=== PATIENT | male | born 1995 | race African-American/Black ===

== ENCOUNTER → 2023-10-27 | Emergency (ER) | payer BC ==
--- NOTE | 2023-10-27 19:44 | ER ---
Nurse's Notes [facility] Name: Man Davis Age: 28 yrs Sex: Male : 1995 Arrival Date: 10/27/2023 Time: 19:14 Bed IW6 Private MD: Diagnosis: Hidradenitis suppurativa Presentation: 10/27 19:31 Chief complaint: Patient states: Pt has extensive history of multiple cysts on his tl4 buttocks that have been drained. Pt states he feels like they are getting worse and more painful. Coronavirus screen: At this time, the client does not indicate any symptoms associated with coronavirus-19. Ebola Screen: No symptoms or risks identified at this time. Initial Sepsis Screen: Does the patient meet any 2 criteria? No. Patient's initial sepsis screen is negative. Does the patient have a suspected source of infection? No. Patient's initial sepsis screen is negative. Risk Assessment: Do you want to hurt yourself or someone else? Patient reports no desire to harm self or others. Onset of symptoms is unknown. 19:31 Method Of Arrival: Ambulatory tl4 19:31 Acuity: SUMEET 3 tl4 Triage Assessment: 19:34 General: Appears uncomfortable, Behavior is calm, cooperative. Pain: Complains of pain tl4 in buttocks. EENT: No deficits noted. No signs and/or symptoms were reported regarding the EENT system. Neuro: No deficits noted. Cardiovascular: No deficits noted. Respiratory: No deficits noted. GI: No deficits noted. No signs and/or symptoms were reported involving the gastrointestinal system. : No deficits noted. No signs and/or symptoms were reported regarding the genitourinary system. Derm: Reports pain cysts. Historical: - Allergies: 19:29 No Known Allergies; tl4 - Home Meds: 19:29 None [Active]; tl4 - PMHx: 19:29 Anemia; hidradenitis suppurativa; tl4 - Immunization history:: Adult Immunizations unknown. - Social history:: Smoking status: Patient reports the use of cigarette tobacco products, cigars. Screenin:46 [facility] ED Fall Risk Assessment (Adult) History of falling in the last 3 months, tl4 including since admission No falls in past 3 months (0 pts) Confusion or Disorientation No (0 pts) Intoxicated or Sedated No (0 pts) Impaired Gait No (0 pts) Mobility Assist Device Used No (0 pt) Altered Elimination No (0 pt) Score/Fall Risk Level 0 - 2 = Low Risk Oriented to surroundings, Maintained a safe environment, Educated pt \T\ family on fall prevention, incl call for assistance when getting out of bed, Assessed \T\ reinforced patient's understanding of fall precautions, Provided non-skid footwear, Hourly rounding (assess needs \T\ fall precautionary measures) done, Used ambulatory aids as needed (educated on \T\ assisted with), Used gait belt as appropriate. Abuse screen: Denies threats or abuse. Denies injuries from another. Nutritional screening: No deficits noted. Tuberculosis screening: No symptoms or risk factors identified. Assessment: 19:46 Reassessment: No changes from previously documented assessment. Patient and/or family tl4 updated on plan of care and expected duration. Pain level reassessed. Patient is alert, oriented x 3, equal unlabored respirations, skin warm/dry/pink. Vital Signs: 19:31 BP 136 / 87; Pulse 98; Resp 16; Temp 98.8(O); Pulse Ox 99% on R/A; Weight 127.01 kg; tl4 Height 6 ft. 3 in. ; Pain 8/10; 19:31 Body Mass Index 35.00 (127.01 kg, 190.5 cm) tl4 19:31 Pain Scale: Adult tl4 ED Course: 19:28 Patient arrived in ED. tl4 19:31 Arm band placed on right wrist. tl4 19:34 Triage completed. tl4 19:42 Anna Maria FNP-C [facility]. kb 19:42 Ajith Pablo MD is Attending Physician. kb 19:46 Patient has correct armband on for positive identification. Provided Education on: ed tl4 process. 19:46 No provider procedures requiring assistance completed. Patient did not have IV access tl4 during this emergency room visit. Administered Medications: No medications were administered Medication: 19:46 VIS not applicable for this client. tl4 Outcome: 19:43 Discharge ordered by . kb 19:47 Discharged to home ambulatory, tl4 19:47 Condition: stable 19:47 Discharge instructions given to patient, Instructed on discharge instructions, follow up and referral plans. medication usage, Demonstrated understanding of instructions, follow-up care, medications, Prescriptions given X 2, 19:52 Patient left the ED. tl4 Signatures: Anna Maria, CARLOS DINH-Abdulaziz Batista tl4
--- NOTE | 2023-10-27 19:44 | EDPHYS ---
Physician Documentation [facility] Name: Man Davis Age: 28 yrs Sex: Male : 1995 Arrival Date: 10/27/2023 Time: 19:14 Bed IW6 Private MD: ED Physician Ajith Pablo HPI: 10/27 21:47 This 28 yrs old Male presents to ER via Ambulatory with complaints of Abscess. kb 21:47 Patient is a 28-year-old male with a history of hidradenitis suppurativa who presents kb for multiple abscesses that have been draining for months. States he had a surgery in [place] where they opened and drained 17 abscesses on his buttocks. states some of those areas healed, but others have been draining since the surgery. States he had been on clindamycin for 90 days, but ran out last week. States he doesn't believe the clindamycin was helping. . Historical: - Allergies: 19:29 No Known Allergies; tl4 - Home Meds: 19:29 None [Active]; tl4 - PMHx: 19:29 Anemia; hidradenitis suppurativa; tl4 - Immunization history:: Adult Immunizations unknown. - Social history:: Smoking status: Patient reports the use of cigarette tobacco products, cigars. ROS: 21:46 Constitutional: Negative for fever, chills, and weight loss, kb 21:46 Skin: Positive for abscess, of the buttocks, 21:46 All other systems are negative, Exam: 21:47 Constitutional: This is a well developed, well nourished patient who is awake, alert, kb and in no acute distress. Head/Face: Normocephalic, atraumatic. ENT: Moist Mucous membranes Cardiovascular: Regular rate Respiratory: Respirations even and unlabored. No increased work of breathing. Talking in full sentences MS/ Extremity: Pulses equal, no cyanosis. Neurovascular intact. Full, normal range of motion. Neuro: Awake and alert, GCS 15, oriented to person, place, time, and situation. Moves all extremities. Normal gait. 21:47 Skin: multiple small abscesses to buttocks a inner upper thighs with drainage. Vital Signs: 19:31 BP 136 / 87; Pulse 98; Resp 16; Temp 98.8(O); Pulse Ox 99% on R/A; Weight 127.01 kg; tl4 Height 6 ft. 3 in. ; Pain 8/10; 19:31 Body Mass Index 35.00 (127.01 kg, 190.5 cm) tl4 19:31 Pain Scale: Adult tl4 MDM: 19:42 Patient medically screened. kb 21:46 Differential diagnosis: abscess, allergic reaction, cellulitis, insect bite. Data kb reviewed: vital signs, nurses notes. Counseling: I had a detailed discussion with the patient and/or guardian regarding the historical points, exam findings, and any diagnostic results supporting the discharge/admit diagnosis, the need for outpatient follow up, a curing oven attendant, a general surgeon, to return to the emergency department if symptoms worsen or persist or if there are any questions or concerns that arise at home. 21:50 ED course: Pt educated on need for follow up with dermatology. Pt states he has been kb told that before but he just moved here and needs a referral. Pt will follow up with PCP to get a referral. . Administered Medications: No medications were administered Disposition Summary: 10/27/23 19:43 Discharge Ordered Notes: Location: Home kb Condition: Stable kb Diagnosis - Hidradenitis suppurativa kb Followup: kb - With: Emergency Department - When: As needed - Reason: Worsening of condition Followup: kb - With: Private Physician - When: 2 - 3 days - Reason: Recheck today's complaints, Continuance of care, Re-evaluation by your physician Discharge Instructions: - Discharge Summary Sheet kb - Hidradenitis Suppurativa kb Forms: - Work release form kb - Medication Reconciliation Form kb - Thank You Letter kb - Antibiotic Education kb - Prescription Opioid Use kb - Patient Portal Instructions kb - Leadership Thank You Letter kb Prescriptions: - Ibuprofen 800 mg Oral Tablet - take 1 tablet ORAL route every 8 hours As needed take with food; 30 tablet; kb Refills: 0, Product Selection Permitted - Bactrim DS 800-160 mg Oral tablet - take 1 tablet ORAL route every 12 hours for 14 days; 28 tablet; Refills: 0, kb Product Selection Permitted Signatures: Anna Maria FNP-C FNP-Hadrik LogdaAbdulaziz subramanian tl4 Corrections: (The following items were deleted from the chart) 19:43 19:43 Cutaneous abscess of buttock kb kb
[2023-10-28 06:18] VITALS: BP 136/87; TEMP 98.8; O2SAT 99
== END ==
LOC: ER 19:14
DX: L73.2 Hidradenitis suppurativa (principal)

== ENCOUNTER 2023-10-28 10:55 | Observation (INO) | payer BC ==
[2023-10-28] MEDS ORDERED: ONDANSETRON 4 MG/2 ML VIAL ONE ×2 (11:10→16:01)
[2023-10-28] MEDS ORDERED: MORPHINE 4 MG/ML SYR ONE ×2 (11:11→13:16)
[2023-10-28] MEDS ORDERED: AMPICILLIN/SULBACTAM 3GM/VIAL ONE (11:11)
[2023-10-28] MEDS ORDERED: NA CHLORIDE 0.9% 100 ML ONE (11:11)
[2023-10-28] MEDS ORDERED: NA CHLORIDE 0.9% 1,000 ML ONE (11:12)
--- NOTE | 2023-10-28 11:20 | ER ---
Nurse's Notes [facility] Name: Man Davis Age: 28 yrs Sex: Male : 1995 Arrival Date: 10/28/2023 Time: 10:55 Bed 16 Private MD: Diagnosis: Cutaneous abscess of buttock;Hidradenitis suppurativa;Elevated white blood cell count;Hyperglycemia, unspecified;Type 2 diabetes mellitus with hyperglycemia;Obesity, unspecified Presentation: 10/28 11:00 Chief complaint: TOLD TO RETURN BY MD FOR RE-EVAL OF LEFT BUTTOCK ABSCESS. NOW TBA FOR bp SURGICAL DEBRIDEMENT AND IV ABX. Coronavirus screen: At this time, the client does not indicate any symptoms associated with coronavirus-19. Ebola Screen: No symptoms or risks identified at this time. Initial Sepsis Screen: Does the patient meet any 2 criteria? No. Patient's initial sepsis screen is negative. Does the patient have a suspected source of infection? No. Patient's initial sepsis screen is negative. Risk Assessment: Do you want to hurt yourself or someone else? Patient reports no desire to harm self or others. Onset of symptoms is unknown. 11:00 Method Of Arrival: Ambulatory bp 11:00 Acuity: SUMEET 3 bp Triage Assessment: 11:02 General: Appears in no apparent distress. uncomfortable, Behavior is calm, cooperative, bp appropriate for age. Pain: Complains of pain in buttocks. Historical: - Allergies: 11:02 No Known Allergies; bp - PMHx: 11:02 Hidradenitis Suppurativa; Anemia; bp - Immunization history:: Adult Immunizations up to date. - Social history:: Smoking status: unknown. - Family history:: not pertinent. Screenin:[address] [facility] ED Fall Risk Assessment (Adult) History of falling in the last 3 months, me1 including since admission No falls in past 3 months (0 pts) Confusion or Disorientation No (0 pts) Intoxicated or Sedated No (0 pts) Impaired Gait No (0 pts) Mobility Assist Device Used No (0 pt) Altered Elimination No (0 pt) Score/Fall Risk Level 0 - 2 = Low Risk Maintained a safe environment, Provided non-skid footwear, Hourly rounding (assess needs \T\ fall precautionary measures) done. Abuse screen: Denies threats or abuse. Nutritional screening: No deficits noted. Tuberculosis screening: No symptoms or risk factors identified. Assessment: 11:05 General: Appears in no apparent distress. uncomfortable, Behavior is calm, cooperative. rs5 Pain: Complains of pain in buttocks Pain does not radiate. Pain currently is 7 out of 10 on a pain scale. Quality of pain is described as aching, Pain began gradually, Is continuous, Aggravated by increased activity. Neuro: Level of Consciousness is awake, alert, obeys commands, Oriented to person, place, time, situation. 11:05 Cardiovascular: Rhythm is regular. Respiratory: Airway is patent Respiratory effort is rs5 even, unlabored, Respiratory pattern is regular, symmetrical. GI: Abdomen is round non-distended, Bowel sounds present X 4 quads. Abd is soft and non tender X 4 quads. GI:. : No signs and/or symptoms were reported regarding the genitourinary system. EENT: No signs and/or symptoms were reported regarding the EENT system. Derm: Skin dime abscess noted to left buttocks. Musculoskeletal: Range of motion: intact in all extremities. Vital Signs: 11:02 BP 141 / 79; Pulse 78; Resp 16; Temp 98; Pulse Ox 99% ; Weight 172 kg; Height 6 ft. 3 bp in. ; 12:00 BP 97 / 52; Pulse 74; Resp 16; Pulse Ox 100% on R/A; Pain 9/10; me1 13:00 BP 94 / 51; Pulse 74; Resp 18; Pulse Ox 99% on R/A; me1 11:02 Body Mass Index 47.40 (172.00 kg, 190.5 cm) bp 12:00 Pain Scale: Adult wv1 ED Course: 10:59 Patient arrived in ED. angelina 10:59 Ajith Pablo MD is Attending Physician. angelina 11:01 Triage completed. bp 11:02 Arm band placed on. bp 11:07 Hans Kat RN is Primary Nurse. rs5 11:09 Inserted saline lock: 20 gauge in right antecubital area, using aseptic technique. rs5 Blood collected. 11:16 Orlando Beal MD is Hospitalizing Provider. angelina 13:25 Hemoglobin A1c Sent. me1 13:25 Lipid Profile Sent. me1 14:13 Patient has correct armband on for positive identification. Placed in gown. Bed in low me1 position. Side rails up X2. Provided Education on: POC. Verbalized understanding. . 14:13 No provider procedures requiring assistance completed. me1 14:15 Patient admitted, IV remains in place. me1 Administered Medications: 11:10 Drug: NS 0.9% IV 1000 ml IV at 1 bolus Per protocol; 1000 mL bolus Route: IV; Rate: 1 rs5 bolus; Site: right antecubital; 13:29 Follow up: IV Status: Completed infusion; IV Intake: 1000ml me1 11:10 Drug: morphine IVP or IV 4 mg IVP once over 4 mins Route: IVP; Infused Over: 4 mins; rs5 Site: right antecubital; 12:14 Follow up: Response: No adverse reaction; Pain is decreased me1 11:10 Drug: Ondansetron IVP 4 mg IVP once; over 2 minutes Route: IVP; Site: right antecubital;rs5 12:13 Follow up: Response: No adverse reaction; Nausea is decreased me1 11:30 Drug: Ampicillin-Sulbactam Sodium IVPB 3 grams IVPB once over 30 mins; (mix in 100 mL rs5 NS) Route: IVPB; Infused Over: 30 mins; Site: right antecubital; 12:13 Follow up: Response: No adverse reaction; IV Status: Completed infusion me1 12:21 Drug: vancoMYCIN IVPB 1.5 grams IVPB at calculated rate once Route: IVPB; Rate: me1 calculated rate; Site: right antecubital; 14:14 Follow up: IV Status: Infusion continued upon admission me1 Medication: 14:14 VIS not applicable for this client. me1 Intake: 13:29 IV: 1000ml; Total: 1000ml. me1 Outcome: 11:19 Decision to Hospitalize by Provider. angelina 14:14 Admitted to Med/surg accompanied by tech, via stretcher, room 218, with chart, Report me1 called to JONATHAN Canseco 14:14 Condition: stable 14:14 Instructed on the need for admit, 14:33 Patient left the ED. ap3 Signatures: Ajith Pablo MD MD cha Peltier, Brian RN RN bp Prisca Marcus RN RN ap3 Hans Kat RN RN rs5 Sandra Mustafa RN RN me1
--- NOTE | 2023-10-28 11:20 | EDPHYS ---
Physician Documentation [facility] Name: Man Davis Age: 28 yrs Sex: Male : 1995 Arrival Date: 10/28/2023 Time: 10:55 Bed 16 Private MD: ED Physician Ajith Pablo HPI: 10/28 11:06 This 28 yrs old Black Male presents to ER via Ambulatory with complaints of hs angelina infected, repeat visit. 11:06 The patient presents with cellulitis of the buttocks, the patient presents with a angelina swollen area of the buttocks. Description: The affected area is moderate sized, draining, erythematous. Onset: The symptoms/episode began/occurred 5 day(s) ago. Possible cause(s): unknown. Associated signs and symptoms: Pertinent positives: drainage, erythema, swelling. Modifying factors: the symptoms are alleviated by remaining still, repositioning , the symptoms are aggravated by movement, pressure. Severity of symptoms: At their worst the symptoms were moderate, in the emergency department the symptoms are unchanged. The patient has experienced similar episodes in the past, multiple times. Historical: - Allergies: 11:02 No Known Allergies; bp - PMHx: 11:02 Hidradenitis Suppurativa; Anemia; bp - Immunization history:: Adult Immunizations up to date. - Social history:: Smoking status: unknown. - Family history:: not pertinent. ROS: 11:06 Constitutional: Negative for fever, chills, and weight loss, Eyes: Negative for injury, angelina pain, redness, and discharge, ENT: Negative for injury, pain, and discharge, Neck: Negative for injury, pain, and swelling, Cardiovascular: Negative for chest pain, palpitations, and edema, Respiratory: Negative for shortness of breath, cough, wheezing, and pleuritic chest pain, Abdomen/GI: Negative for abdominal pain, nausea, vomiting, diarrhea, and constipation, Back: Negative for injury and pain, : Negative for injury, bleeding, discharge, and swelling, Neuro: Negative for headache, weakness, numbness, tingling, and seizure, Psych: Negative for depression, anxiety, suicide ideation, homicidal ideation, and hallucinations, Allergy/Immunology: Negative for hives, rash, and allergies, Endocrine: Negative for neck swelling, polydipsia, polyuria, polyphagia, and marked weight changes, Hematologic/Lymphatic: Negative for swollen nodes, abnormal bleeding, and unusual bruising, 11:06 MS/extremity: Positive for erythema, pain, swelling, tenderness, 11:06 Skin: Positive for abscess, cellulitis, erythema, swelling, of the buttocks, Exam: 11:06 Constitutional: This is a well developed, well nourished patient who is awake, alert, angelina and in no acute distress. Head/Face: Normocephalic, atraumatic. Eyes: Pupils equal round and reactive to light, extra-ocular motions intact. Lids and lashes normal. Conjunctiva and sclera are non-icteric and not injected. Cornea within normal limits. Periorbital areas with no swelling, redness, or edema. ENT: Nares patent. No nasal discharge, no septal abnormalities noted. Tympanic membranes are normal and external auditory canals are clear. Oropharynx with no redness, swelling, or masses, exudates, or evidence of obstruction, uvula midline. Mucous membranes moist. Neck: Trachea midline, no thyromegaly or masses palpated, and no cervical lymphadenopathy. Supple, full range of motion without nuchal rigidity, or vertebral point tenderness. No Meningismus. Chest/axilla: Normal chest wall appearance and motion. Nontender with no deformity. No lesions are appreciated. Cardiovascular: Regular rate and rhythm with a normal S1 and S2. No gallops, murmurs, or rubs. Normal PMI, no JVD. No pulse deficits. Respiratory: Lungs have equal breath sounds bilaterally, clear to auscultation and percussion. No rales, rhonchi or wheezes noted. No increased work of breathing, no retractions or nasal flaring. Abdomen/GI: Soft, non-tender, with normal bowel sounds. No distension or tympany. No guarding or rebound. No evidence of tenderness throughout. Back: No spinal tenderness. No costovertebral tenderness. Full range of motion. Male : Normal genitalia with no discharge or lesions. Neuro: Awake and alert, GCS 15, oriented to person, place, time, and situation. Cranial nerves II-XII grossly intact. Motor strength 5/5 in all extremities. Sensory grossly intact. Cerebellar exam normal. Normal gait. Psych: Awake, alert, with orientation to person, place and time. Behavior, mood, and affect are within normal limits. 11:06 Skin: abscess, that is moderate sized, of the buttocks, cellulitis, that is moderate, induration, that is moderate is noted, Vital Signs: 11:02 BP 141 / 79; Pulse 78; Resp 16; Temp 98; Pulse Ox 99% ; Weight 172 kg; Height 6 ft. 3 bp in. ; 12:00 BP 97 / 52; Pulse 74; Resp 16; Pulse Ox 100% on R/A; Pain 9/10; me1 13:00 BP 94 / 51; Pulse 74; Resp 18; Pulse Ox 99% on R/A; me1 11:02 Body Mass Index 47.40 (172.00 kg, 190.5 cm) bp 12:00 Pain Scale: Adult ms1 MDM: 10:59 Patient medically screened. [facility] 11:12 Data reviewed: vital signs, nurses notes, lab test result(s), CBC, electrolytes, [facility] hepatic panel. Consideration of Admission/Observation Patient was admitted/placed on observation. Escalation of care including admission/observation considered. I considered the following discharge prescriptions or medication management in the emergency department Medications were administered in the Emergency Department. See MAR. Test considered but Not performed: EKG: no ekg. Historians other than the Patient: patient well informed. Care significantly affected by the following chronic conditions: Obesity, anemia, hs. 10/28 11:06 Order name: CBC with Diff [facility] 10/28 11:06 Order name: Comprehensive Metabolic Panel; Complete Time: 12:20 [facility] 10/28 11:06 Order name: Wound Culture [facility] 10/28 11:37 Order name: CBC Smear Scan [facility] 10/28 12:49 Order name: Hemoglobin A1c [facility] 10/28 12:49 Order name: Lipid Profile [facility] 10/28 13:45 Order name: Phosphorus [facility] 10/28 13:45 Order name: Magnesium [facility] Administered Medications: 11:10 Drug: NS 0.9% IV 1000 ml IV at 1 bolus Per protocol; 1000 mL bolus Route: IV; Rate: 1 rs5 bolus; Site: right antecubital; 13:29 Follow up: IV Status: Completed infusion; IV Intake: 1000ml [facility] 11:10 Drug: morphine IVP or IV 4 mg IVP once over 4 mins Route: IVP; Infused Over: 4 mins; rs5 Site: right antecubital; 12:14 Follow up: Response: No adverse reaction; Pain is decreased me1 11:10 Drug: Ondansetron IVP 4 mg IVP once; over 2 minutes Route: IVP; Site: right antecubital;rs5 12:13 Follow up: Response: No adverse reaction; Nausea is decreased me1 11:30 Drug: Ampicillin-Sulbactam Sodium IVPB 3 grams IVPB once over 30 mins; (mix in 100 mL rs5 NS) Route: IVPB; Infused Over: 30 mins; Site: right antecubital; 12:13 Follow up: Response: No adverse reaction; IV Status: Completed infusion me1 12:21 Drug: vancoMYCIN IVPB 1.5 grams IVPB at calculated rate once Route: IVPB; Rate: me1 calculated rate; Site: right antecubital; 14:14 Follow up: IV Status: Infusion continued upon admission me1 Disposition Summary: 10/28/23 11:19 Hospitalization Ordered Notes: Hospitalization Status: Inpatient Admission angelina Provider: Orlando Beal cha Location: Telemetry/MedSurg (Inpatient) angelina Condition: Stable angelina Problem: new angelina Symptoms: have improved angelina Bed/Room Type: Standard [facility] Room Assignment: 218(10/28/23 13:16) bd Diagnosis - Cutaneous abscess of buttock angelina - Hidradenitis suppurativa angelina - Elevated white blood cell count angelina - Hyperglycemia, unspecified angelina - Type 2 diabetes mellitus with hyperglycemia angelina - Obesity, unspecified angelina Forms: - Medication Reconciliation Form angelina - SBAR form angelina - Leadership Thank You Letter angelina Signatures: Dispatcher [employer] EDMonika Del Toro Corey, MD MD cha Peltier, Brian RN RN Hans Kat RN RN rs5 Sandra Mustafa RN RN me1 Corrections: (The following items were deleted from the chart) 13:16 11:19 angelina bd
[2023-10-28 11:33] LABS: Absolute Lymphocytes (CBC) 1.6 K/uL (0.7-4.9); Hematocrit 25.6 % (39.6-49.0); Lymphocytes % 12.3 % (15.3-44.8); MCV 63.1 fL (80-100); MPV 6.8 fL (7.6-11.3); Platelets 491 thou/uL (152-406); RBC Red Blood Cell Count 4.06 M/uL (4.33-5.43)
[2023-10-28 11:49] LABS: Albumin 2.2 g/dL (3.4-5.0); Bilirubin Total 0.2 mg/dL (0.2-1.0); Potassium 3.8 mEq/L (3.5-5.1); Protein, Total 8.7 g/dL (6.4-8.2)
[2023-10-28] MEDS ORDERED: VANCOMYCIN 1 GM/VIAL ONE (12:16)
[2023-10-28] MEDS ORDERED: VANCOMYCIN 500 MG/VIAL ONE (12:16)
[2023-10-28] MEDS ORDERED: NA CHLORIDE 0.9% 250 ML ONE (12:16)
[2023-10-28 12:20] LABS: Blood Morphology Comment NOTED (NOT SEEN); Hypochromasia 1+; Platelet Estimate ADEQ; White Blood Cell Scan OK (OK)
[2023-10-28] MEDS ORDERED: ACETAMINOPHEN 325 MG TABLET PO PRN (12:42)
[2023-10-28] MEDS ORDERED: MORPHINE 4 MG/ML SYR IV PRN (12:42)
[2023-10-28] MEDS ORDERED: VANCOMYCIN 1 GM in NA CHLORIDE 0.9% 250 ML IVPB SCH (12:46)
[2023-10-28] MEDS ORDERED: HYDRALAZINE HCL 20 MG/ML VIAL IV PRN (12:46)
[2023-10-28] MEDS ORDERED: ONDANSETRON 4 MG/2 ML VIAL IV PRN (12:50)
--- NOTE | 2023-10-28 12:52 | P.HP ---
Certification for Inpatient Patient admitted to: Observation With expected LOS: <2 Midnights Patient will require the following post-hospital care: None Practitioner: I am a practitioner with admitting privileges, knowledge of patient current condition, hospital course, and medical plan of care. Services: Services provided to patient in accordance with Admission requirements found in Title 42 Section 412.3 of the Code of Federal Regulations <Jono Vernon - Last Filed: 10/28/23 17:55> Patient History Date of Service: 10/28/23 Reason for admission: Abscess\cellulitis of of buttocks History of Present Illness: Patient is a 28-year-old male with a past medical history significant for anemia, GERD, DM 2, hidradenitis suppurativa, nicotine dependence who presents with complaint of swelling, pain and redness to his buttocks. Patient reported that he has been battling with hidradenitis suppurativa\abscess to his buttocks for the past couple of months. Patient rated pain as 8/10 in severity and described pain as aching\sharp in quality. Patient reports that symptoms became worse in the last 5 days and patient has been having drainage from his buttocks as well. Patient denies any other signs and symptoms. Symptoms are aggravated or relieved by nothing. Patient decided to present to the hospital due to worsening symptoms. - Past Medical/Surgical History -: GERD -: DM 2 -: Anemia -: Hidradenitis suppurativa -: Nicotine dependence Past Surgical History: Patient denies surgical history - Family History Father -: Hypertension Brother -: Diabetes - Social History Smoking Status: Current every day smoker Counseled patient to stop smoking for: less than 10 minutes Smoking therapy provided: Yes Patient receptive to therapy: Yes Alcohol use: No CD- Drugs: No Caffeine use: No Place of Residence: Home <Jono Vernon Nilsa - Last Filed: 10/28/23 17:55> Date of Service: 10/29/23 <Orlando Beal - Last Filed: 10/29/23 07:29> Allergies chlorhexidine [From Hibiclens] Allergy (Verified 10/28/23 15:06) Hives/Rash Review of Systems General: Unremarkable Eyes: Unremarkable ENT: Unremarkable Respiratory: Unremarkable Cardiovascular: Unremarkable Gastrointestinal: Unremarkable Genitourinary: Unremarkable Musculoskeletal: Unremarkable Integumentary: Other (Left buttocks swelling\redness) Neurological: Unremarkable Lymphatics: Unremarkable <BryanchelseaJono paulino Nilsa - Last Filed: 10/28/23 17:55> Physical Examination - Physical Exam General: Alert, In no apparent distress, Oriented x3, Cooperative HEENT: Atraumatic, PERRLA, Mucous membr. moist/pink, EOMI, Sclerae nonicteric Neck: Supple, 2+ carotid pulse no bruit, No LAD, Without JVD or thyroid abnormality Respiratory: Clear to auscultation bilaterally, Normal air movement Cardiovascular: No edema, Regular rate/rhythm, Normal S1 S2 Gastrointestinal: Normal bowel sounds, Non-distended, Tenderness Musculoskeletal: No clubbing, No tenderness Integumentary: No rashes, Skin breakdown, Tenderness/swelling, Erythema Neurological: Normal speech, Normal tone, Normal affect Lymphatics: No axilla or inguinal lymphadenopathy - Studies Laboratory Data (last 24 hrs) 10/28/23 10/28/23 11:25 11:25 WBC 13.40 H Hgb 8.3 L Hct 25.6 L Plt Count 491 H Sodium 135 L Potassium 3.8 BUN 8 Creatinine 1.06 Glucose 232 H Total Bilirubin 0.2 AST 11 L ALT 13 L Alkaline Phosphatase 59 <BryanchelseaJono paulino Nilsa - Last Filed: 10/28/23 17:55> - Studies Laboratory Data (last 24 hrs) 10/28/23 10/28/23 11:25 11:25 WBC 13.40 H Hgb 8.3 L Hct 25.6 L Plt Count 491 H Sodium 135 L Potassium 3.8 BUN 8 Creatinine 1.06 Glucose 232 H Total Bilirubin 0.2 AST 11 L ALT 13 L Alkaline Phosphatase 59 <Orlando Beal - Last Filed: 10/29/23 07:29> Assessment and Plan - Plan --Cutaneous abscess\Cellulitis of buttock\Hidradenitis suppurativa. Surgeon on board. Plans to take patient to the OR for I&D. Blood cultures and wound cultures pending. Continue antibiotics. Infectious disease MD consulted. Further management per surgeon and infectious disease MD.. -- Acute pain. We will manage pain with current pain medication regimen. --Nicotine dependence. Patient counseled on tobacco cessation. Refuses nicotine patch. --GERD. Continue Protonix. --DM2. BS monitoring with sliding scale insulin. --Morbid obesity. Likely secondary to excess calories intake. Patient counseled on weight reduction, diet and exercise therapy. --Anemia of chronic disease. H&H stable. Will continue to monitor hemoglobin and transfuse if less than 7.0. --Leukocytosis. Sepsis. Blood and wound cultures pending. Continue antibiotics. Will continue to monitor WBC levels. --DVT prophylaxis with SCDs. Discharge Plan: Home Plan to discharge in: 48 Hours - Advance Directives Does patient have a Living Will: No Does patient have a Durable POA for Healthcare: No - Code Status/Comfort Care Code Status Assessed: Yes Physician Review: Patient Assessed, Agree with Above Assessment and Plan Critical Care: No <Jono Vernon - Last Filed: 10/28/23 17:55> - Plan Pt seen and examined. I agree with the note by the STEAM BRUSH OPERATOR. Pt is a 28 yo male with past medical history of hidradenitis suppurativa and anemia who presents with cellulitis of the buttocks and pain in the gluteal cleft. Pt started having pain and drainage from his buttocks (L >R) about 5 days ago. It progressively worsened to the extent that he cannot lay on his back. On admission, lab studies show WBC 13.4, K 3.8, Cr 1.06 and glucose 232. At bedside, pt is in NAD. ROS is significant for gluteal abscess. A/P: Gluteal abscess/ cellulitis: Likely due to hidradenitis suppurativa. Continue iv vanc and cefepime. Will follow up wound culture and blood cx. Consulted ID and Gen surgery. Will check lactate. Gen surgery will do I&D today. Anemia: Hgb is 8.3. Will monitor H/H DM II: Will continue accuchek, SSI, and ADA diet. A1c is 6.5. Hx of hidradenitis suppurativa: He usually gets it in his arm pit or groin. DVT ppx: SCD Code: full. <Orlando Beal - Last Filed: 10/29/23 07:29>
[2023-10-28 13:45] LABS: Magnesium 1.5 mg/dL (1.6-2.4); Phosphorus 2.9 mg/dL (2.5-4.9)
[2023-10-28 15:02] VITALS: BMI 34.9
[2023-10-28] MEDS ORDERED: Ringers Lactate 1,000 ML IV ONE (15:11)
[2023-10-28] MEDS ORDERED: ROCURONIUM 50 MG/5 ML VIAL IV ONE (15:25)
[2023-10-28] MEDS ORDERED: LIDOCAINE 1% MPF 5 ML VIAL ONE (15:25)
[2023-10-28] MEDS ORDERED: propofoL 200 MG/20 ML VIAL IV ONE (15:25)
[2023-10-28] MEDS ORDERED: FENTANYL CITR 100 MCG/2 ML ONE (15:26)
[2023-10-28] MEDS ORDERED: MIDAZOLAM HCL 2 MG/2 ML INJ ONE (15:27)
[2023-10-28] MEDS ORDERED: BUPIVACAINE 0.5% PF 10 ML VIAL ONE ×3 (15:31→15:33)
--- NOTE | 2023-10-28 15:37 | P.CNS ---
Date of Consult: 10/28/23 Reason for consult: Left buttock pain History of present illness: Patient is a 28-year-old gentleman who has a long history of hidradenitis suppurativa who comes into the emergency room this morning with increasing left buttock pain. Patient was seen in the ER yesterday and was discharged on oral antibiotics. His symptoms have worsened and therefore he came back. On evaluation by the emergency room physician, patient was found to have an abscess on the left buttocks. I was consulted. Patient is complaining of increased pain, no fever or chills and minimal discharge. Workup revealed leukocytosis. Patient was admitted and started on IV antibiotics. Review of systems: Patient denies sore throat, runny nose, cough, headaches, dizziness, chest pain, fever or chills. Past medical history: Hidradenitis suppurativa and anemia Past surgical history: Multiple I&D's for abscesses related to hidradenitis suppurativa Allergies: Allergies include chlorhexidine Social history: Patient denies smoking drinks occasionally Family history: Noncontributory Vital signs: Stable, afebrile Physical exam: Awake, alert and oriented x 3 Head and neck exam: No masses Chest: Clear Heart: S1-S2 Abdomen: Soft, nondistended, nontender and positive bowel sounds Extremity: Neurovascular intact and nontender Neuro: Nonfocal Rectal: Large abscess on the left buttocks approximately 6 x 8 cm with central fluctuance surrounding erythema and warmth. Skin appears to be consistent with hidradenitis suppurativa. Diagnostic data: White count is 13.4 with a left shift and patient is anemic Assessment: Left buttock abscess and cellulitis Plan/recommendation: Admit, n.p.o., IV fluid, IV antibiotics and to the OR for incision, drainage and debridement of a left buttock abscess. Patient understands risk, benefits and alternatives and agrees to procedure. CC:
[2023-10-28] MEDS ORDERED: KETOROLAC 30 MG/ML INJ ONE (16:01)
[2023-10-28] MEDS ORDERED: dexAMETHasone 4 MG/ML VIAL ONE (16:01)
[2023-10-28] MEDS ORDERED: GLYCOPYRROLATE 0.2 MG/ML SYR ONE ×2 (16:10→16:31)
[2023-10-28] MEDS ORDERED: Phenylephrine HCl 10 MG/ML 1 ML VIAL ONE (16:15)
[2023-10-28] MEDS ORDERED: NEOSTIGMINE 1 MG/ML -10 ML VIAL ONE (16:31)
--- NOTE | 2023-10-28 16:49 | P.OP ---
Date of Service: 10/28/23 Preop diagnosis: Left buttock abscess, hidradenitis suppurativa Postop diagnosis: Same Procedure performed: Incision, drainage and debridement of left buttock abscess Surgeon: Shiraz Alatorre MD Time Study Analyst: None Estimated blood loss: Minimal Specimen: Pus and debridement tissue Findings: As above Anesthesia: General Complications: None Drains: None Fluids and blood products: Nonapplicable Disposition: Recovery room Operative note: Patient brought to the OR and placed in supine position. General anesthesia begun. Patient placed in the left lateral position. Patient prepped and draped in the usual sterile fashion. Marcaine 0.5% infiltrated locally for postop pain control. Then approximately a 4 x 1 cm incision made over the fluctuant part of the abscess. Skin excised and pus under pressure evacuated. Cultures done. Loculations broken up. Necrotic tissue debrided. Wound irrigated and bleeding controlled with cautery. Wet-to-dry normal saline dressing change applied. Patient tolerated procedure in stable condition taken to recovery room in good general condition. CC:
[2023-10-28] MEDS: CEFEPIME 1 GM in NA CHLORIDE 0.9% 100 ML IV SCH (17:28)
[2023-10-28] MEDS ORDERED: D50W 25 GM/50 ML SYRINGE IV PRN (17:48)
[2023-10-28] MEDS ORDERED: GLUCAGON 1 MG/VIAL IM PRN (17:48)
[2023-10-28] MEDS ORDERED: SODIUM CHLORIDE 0.9% 10ML INJ IV PRN (17:49)
[2023-10-28] MEDS ORDERED: D10W 125 ML IV PRN (18:00)
[2023-10-28] MEDS: MUPIROCIN 2% OINT 22GM TUBE TOP SCH (21:00)
[2023-10-29] MEDS: INSULIN REGULAR (HUMAN) 100 UNIT/ML SQ SCH ×5 (00:06→20:33)
[2023-10-29] MEDS: CEFEPIME 1 GM in NA CHLORIDE 0.9% 100 ML IV SCH ×3 (00:06→17:29)
[2023-10-29] MEDS ORDERED: VANCOMYCIN 1 GM/VIAL ONE (03:34)
[2023-10-29] MEDS ORDERED: NA CHLORIDE 0.9% 500 ML ONE (03:35)
[2023-10-29] MEDS: HYDROMORPHONE HCL 1 MG/ML INJ IV PRN ×3 (04:26→23:34)
[2023-10-29] MEDS: PANTOPRAZOLE 40 MG INJ IVP SCH (08:49)
[2023-10-29] MEDS: MUPIROCIN 2% OINT 22GM TUBE TOP SCH ×2 (08:50→20:33)
[2023-10-29] MEDS ORDERED: INSULIN GLARGINE 100 UNIT/ML SQ SCH (09:00)
--- NOTE | 2023-10-29 09:45 | P.CNS ---
Date of Consult: 10/29/23 Reason for Consult: Hidradenitis suppurativa Requesting Physician: Orlando Beal Chief Complaint: Abscess\\cellulitis of of buttocks History of Present Illness: Patient is a 28 yo male with a medical history of hidradenitis suppurativa, diabetes mellitys type II, GERD who presented to the ED with complaints of left buttock pain and swelling. He reports "boil" and pain on his buttock has been present for a few months without any improvement. He was found to have abscess of left buttock and underwent incision, drainage and debridement on 10/[address] Alatorre. Infectious disease was consulted. Allergies chlorhexidine [From Hibiclens] Allergy (Verified 10/28/23 15:06) Hives/Rash Home medications list reviewed: Yes - Past Medical/Surgical History -: GERD -: DM 2 -: Anemia -: Hidradenitis suppurativa -: Nicotine dependence - Family History Father Medical History: Hypertension Brother Medical History: Diabetes - Social History Smoking Status: Unknown if ever smoked Alcohol use: No CD- Drugs: No Caffeine use: No Place of Residence: Home Review of Systems Integumentary: Other (hidradenitis suppurativa), As per HPI Physical Examination Temp Pulse Resp BP Pulse Ox 97.0 F 59 12 109/56 L 97 10/29/23 08:00 10/29/23 08:00 10/29/23 08:00 10/29/23 08:00 10/29/23 08:00 General: Alert, In no apparent distress, Oriented x3, Obese HEENT: Atraumatic, Normocephalic Respiratory: Clear to auscultation bilaterally, Normal air movement Cardiovascular: No edema, Regular rate/rhythm Gastrointestinal: Normal bowel sounds, Soft and benign, Non-distended, No tenderness Integumentary: Other (left buttock surgical incision site dressing is clean dry and intact) Neurological: Normal speech, Normal tone Laboratory Data - Reviewed Microbiology Data - Reviewed Imagings Data: - Reviewed Conclusions/Impression: Problem List Abscess left buttock Hidradenitis suppurativa Diabetes mellitus type II Gastroesophageal reflux disease Abscess left buttock - s/p incision, drainage and debridement of left buttock abscess on 10/[address] Alatorre - Blood cultures 10/28: pending - deep tissue culture 10/28: pending - Currently on Cefepime and Vancomycin (started 10/28) Leukocytosis (WBC 13.4) Afebrile Hidradenitis suppurativa - keep affected areas clean. due to allergy to chlorhexidine reported as hives/rash, recommend cleansing area with mild soap and water daily. - weight loss counseling - smoking cessation counseling - management of diabetes - wear loose-fitting clothing Recommendations - Continue Cefepime and Vancomycin for now. Awaiting final culture/sensitivity results. Will adjust antibiotics as appropriate. - recommend continuing antibiotic therapy for 14 days total - Wound care per surgery team - strict blood glucose control - monitor wbc and fever trends -Hidradenitis suppurativa: continue with supportive measures. Recommend follow up with dermatology as outpatient for long-term management. Case discussed with Paty Romero
--- NOTE | 2023-10-29 11:29 | P.PN ---
Subjective Date of Service: 10/29/23 Chief Complaint: Abscess\cellulitis of of buttocks Subjective: No new changes, Improving, Doing well Patient is alert and oriented x 3 Resting in the bed NAD, S/P I&D of left gluteal abcess Denies any pain or shortness of breath Vital stable <Ben Sweetanna - Last Filed: 10/29/23 11:23> Date of Service: 10/30/23 <Orlando Beal - Last Filed: 10/30/23 18:09> Review of Systems 10-point ROS is otherwise unremarkable <Jacoby Sweetjuwan - Last Filed: 10/29/23 11:23> Physical Examination - Vital Signs Temperature: 97.0 F Blood Pressure: 109/56 Pulse: 59 Respirations: 12 Pulse Ox (%): 97 - Physical Exam General: Alert, In no apparent distress, Oriented x3 HEENT: Atraumatic, Normocephalic Neck: Supple, 2+ carotid pulse no bruit Respiratory: Clear to auscultation bilaterally, Normal air movement Cardiovascular: No edema, Normal pulses Capillary refill: <2 Seconds Gastrointestinal: Normal bowel sounds, Soft and benign Musculoskeletal: No clubbing, No swelling, Other (Left gluteal abscess, status post I&D) Integumentary: No rashes, No breakdown Neurological: Normal speech, Normal affect - Studies Laboratory Data (last 24 hrs) 10/28/23 10/28/23 11:25 11:25 WBC 13.40 H Hgb 8.3 L Hct 25.6 L Plt Count 491 H Sodium 135 L Potassium 3.8 BUN 8 Creatinine 1.06 Glucose 232 H Total Bilirubin 0.2 AST 11 L ALT 13 L Alkaline Phosphatase 59 <Grisel Sweet - Last Filed: 10/29/23 11:23> - Studies Microbiology Data (last 24 hrs): 10/28/23 11:40 Wound - Abscess Gram Stain - Final <Orlando Beal - Last Filed: 10/30/23 18:09> Assessment And Plan - Plan --Cutaneous abscess\Cellulitis of buttock\Hidradenitis suppurativa: -Status post incision and drainage of the abscess. On antibiotics vancomycin and cefepime. . Blood cultures and wound cultures pending. Continue antibiotics. Infectious disease MD consulted. -- Acute pain. We will manage pain with current pain medication regimen. --Nicotine dependence. Patient counseled on tobacco cessation. Refuses nicotine patch. --GERD. Continue Protonix. --DM2. With hyper glycemia BS monitoring with insulin aggressive sliding scale --Morbid obesity. Likely secondary to excess calories intake. Patient counseled on weight reduction, diet and exercise therapy. --Anemia of chronic disease. H&H stable. Will continue to monitor hemoglobin and transfuse if less than 7.0. --Leukocytosis. Sepsis. Blood and wound cultures pending. Continue antibiotics. Will continue to monitor WBC levels. --DVT prophylaxis with SCDs. Discharge Plan: Home Plan to discharge in: 48 Hours - Code Status/Comfort Care Code Status Assessed: Yes (full code) Code Status: Full Code Physician Review: Patient Assessed, Agree with Above Assessment and Plan Critical Care: No Time Spent Managing PTS Care (In Minutes): 35 (minutes) <Grisel Sweet - Last Filed: 10/29/23 11:23> - Plan Pt seen and examined. I agree with the note by the CONSTRUCTION COORDINATOR. S/p I&D. Will continue dressing changes and iv abx. <Orlando Beal - Last Filed: 10/30/23 18:09>
[2023-10-29] MEDS: VANCOMYCIN 2 GM in NA CHLORIDE 0.9% 500 ML IVPB SCH ×3 (13:12)
--- NOTE | 2023-10-29 13:30 | PN ---
Date of Progress Note: 10/29/2023 Subjective: The patient is awake, alert, feeling better. Objective: Vital Signs: Stable, afebrile. Laboratory Data: Pending. Gram stain is pending. Dressing is clean, dry, intact. Assessment: Status post I and D of left buttock abscess in the patient with hidradenitis suppurativa . Recommendations: Continue IV antibiotics. Check Gram stain. Most likely it is going to be an MRSA infection based on the clinical presentation. Once family is taught how to change the dressing and w e have a preliminary report of the culture, the patient can be discharged home and I can check the fi nal results and adjust the antibiotics as an outpatient. We will order local wound care. We will se e him in [facility]up [facility]. DESMOND/JONES Voice ID: [id number] Report ID: [id number]
[2023-10-29] MEDS: HYDROCODONE/APAP 10/325 TAB PO PRN (14:38)
[2023-10-29 21:59] VITALS: O2SAT 96
[2023-10-30] MEDS: CEFEPIME 1 GM in NA CHLORIDE 0.9% 100 ML IV SCH ×2 (00:47→09:54)
[2023-10-30] MEDS: HYDROCODONE/APAP 10/325 TAB PO PRN ×2 (01:55→11:19)
[2023-10-30] MEDS ORDERED: VANCOMYCIN 2 GM in NA CHLORIDE 0.9% 500 ML IVPB SCH (06:00)
[2023-10-30 06:48] LABS: Specific Gravity 1.026 (1.005-1.030); Urine Bilirubin NEGATIVE (Negative); Urine Blood Negative (Negative); Urine Clarity Clear (Clear); Urine Color Light-Yellow (Yellow); Urine Glucose NEGATIVE (Negative); Urine Protein NEGATIVE (Negative); Urine Urobilinogen Normal (Normal); Urine pH 6.5 (5.0-7.0)
[2023-10-30] MEDS: HYDROMORPHONE HCL 1 MG/ML INJ IV PRN (06:53)
[2023-10-30] MEDS ORDERED: GLUCAGON 1 MG/VIAL IM PRN (07:18)
[2023-10-30] MEDS ORDERED: D50W 25 GM/50 ML SYRINGE IV PRN (07:18)
[2023-10-30] MEDS: INSULIN REGULAR (HUMAN) 100 UNIT/ML SQ SCH ×2 (07:30→11:56)
[2023-10-30] MEDS: INSULIN LISPRO 100 UNIT/ML SQ SCH ×2 (08:00→11:56)
[2023-10-30 08:19] VITALS: TEMP 97.8
[2023-10-30] MEDS ORDERED: INSULIN GLARGINE 100 UNIT/ML SQ SCH (09:00)
[2023-10-30] MEDS: MUPIROCIN 2% OINT 22GM TUBE TOP SCH (09:00)
--- NOTE | 2023-10-30 09:29 | P.PN ---
Date of Service: 10/30/23 Chief Complaint: Abscess\cellulitis of of buttocks Subjective: In no apparent distress. No new or worsening complaints at this time. No acute events overnight. Physical Examination Temp Pulse Resp BP Pulse Ox 97.8 F 60 16 103/46 L 95 10/30/23 08:00 10/30/23 08:00 10/30/23 08:00 10/30/23 08:00 10/30/23 08:00 General: Alert, In no apparent distress, Oriented x3, Obese HEENT: Atraumatic, Normocephalic Respiratory: Clear to auscultation bilaterally, Normal air movement Cardiovascular: No edema, Regular rate/rhythm. Gastrointestinal: Normal bowel sounds, Soft and benign, Non-distended, No tenderness Integumentary: Left buttock surgical incision site dressing is clean dry and intact Neurological: Normal speech, Normal tone Laboratory Data - Reviewed Microbiology Data - Reviewed Imagings Data: - Reviewed Medications List: Reviewed Assessment and Plan Problem List Abscess left buttock Hidradenitis suppurativa Diabetes mellitus type II Gastroesophageal reflux disease Abscess left buttock - s/p incision, drainage and debridement of left buttock abscess on 10/[address] Alatorre - Blood cultures 10/28: no growth to date - deep tissue culture 10/28: streptococcus agalactiae ; sensitive to penicillin - Currently on Cefepime and Vancomycin (started 10/28) Leukocytosis Afebrile Hidradenitis suppurativa - keep affected areas clean. due to allergy to chlorhexidine reported as hives/rash, recommend cleansing area with mild soap and water daily. - weight loss counseling - management of diabetes Recommendations Left buttock abscess s/p I&D 10/28: recommend continuing antibiotic therapy for 10-14 days. Deep tissue wound culture growing group B strep. Consider switch to Cephalexin or Augmentin PO upon discharge. - Wound care per surgery team - strict blood glucose control - monitor wbc and fever trends -Hidradenitis suppurativa: continue with supportive measures. Recommend follow up with dermatology as outpatient for long-term management. Case discussed with Paty Romero
[2023-10-30] MEDS: PANTOPRAZOLE 40 MG INJ IVP SCH (09:54)
[2023-10-30 12:04] VITALS: BP 119/62
--- NOTE | 2023-10-30 18:44 | PN ---
Date of Progress Note: 10/30/2023 Subjective: Patient is awake, alert. No complaints. Objective: Vital Signs: Stable. Afebrile. Dressing is clean, dry, and intact. Laboratory Data: Cultures are growing strep sensitive to penicillin. Assessment: Status post incision and drainage, left buttock abscess. Recommendations: Patient will be discharged home on antibiotics, clindamycin and doxycycline, and dr eng as ordered. [facility]. Discharge instructions given. DESMOND/JONES Voice ID: [id number] Report ID: [id number]
== END 2023-10-30 15:35 | disposition home or self-care (01) ==
LOC: ER 10:55 → ERHOLD 12:41 → 2ND 14:00
PROVIDERS: ADMIT Hospitalist; ATTEND Hospitalist
PROC: 0HB8XZZ Excision of Buttock Skin, External Approach (ICD-10-PCS; 2023-10-28)
PROC: 0H98XZX Drainage of Buttock Skin, External Approach, Diagnostic (ICD-10-PCS; principal; 2023-10-28 15:45)
DX: L02.31 Cutaneous abscess of buttock (principal); A40.1 Sepsis due to streptococcus, group B; I96 Gangrene, not elsewhere classified; L73.2 Hidradenitis suppurativa; K21.9 Gastro-esophageal reflux disease without esophagitis; F17.210 Nicotine dependence, cigarettes, uncomplicated; E66.01 Morbid (severe) obesity due to excess calories; D64.9 Anemia, unspecified; E11.65 Type 2 diabetes mellitus with hyperglycemia; D63.8 Anemia in other chronic diseases classified elsewhere; Z71.3 Dietary counseling and surveillance; Z68.35 Body mass index [BMI] 35.0-35.9, adult
CPT/HCPCS: 87040; 87070 ×2; 85025; 36415; 83735; 87205 ×2; 84100; 80061; 82947 ×7; 83605; 88304; 87075; 87077 ×2; 87186 ×2; 81003; 83036; 80053; 94010; 10060; 97597; J1815 ×8; J2704; J1100; J2710; J2001; J2371; C9113 ×2; J2250; J3010; J1170 ×4; J0295; J2405 ×2; G0378 ×6; J7120; J7050; J7040; J7030; J0692 ×6

== ENCOUNTER 2024-01-07 13:32 | Emergency (ER) | payer OTHER, BC ==
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
[2024-01-07] MEDS ORDERED: TRAMADOL HCL 50 MG TAB ONE (15:30)
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
[2024-01-07 18:06] VITALS: BP 138/74; TEMP 97.3; O2SAT 98
== END 2024-01-07 15:49 | disposition home or self-care (01) ==
LOC: ER 13:32
DX: M25.561 Pain in right knee (principal); M54.50 Low back pain, unspecified; V69.40XA Driver of heavy transport vehicle injured in collision with unspecified motor vehicles in traffic accident, initial encounter; Z88.8 Allergy status to other drugs, medicaments and biological substances; Z72.0 Tobacco use
CPT/HCPCS: 72100; 99285

== ENCOUNTER 2024-04-19 09:05 | Inpatient (IN) | payer BC ==
[2024-04-19 10:32] LABS: Absolute Basophils 0.1 K/uL (0-0.5); Absolute Eosinophils 0.3 K/uL (0-0.5); Absolute Lymphocytes (CBC) 1.8 K/uL (0.7-4.9); Absolute Monocytes 0.8 K/uL (0.1-1.3); Absolute Neutrophil 11.2 K/uL (1.8-8.0); Basophils % 0.4 % (0-1.3); Eosinophils % 1.8 % (0-4.4); Hematocrit 23.5 % (39.6-49.0); Hemoglobin 7.2 g/dL (13.6-17.9); Lymphocytes % 12.9 % (15.3-44.8); MCH 19.1 pg (27.0-35.0); MCHC 30.8 g/dL (32.0-36.0); MCV 61.9 fL (80-100); MPV 6.9 fL (7.6-11.3); Monocytes % 5.9 % (3.3-12.3); Platelets 587 thou/uL (152-406); Red Cell Distribution Width 19.9 % (12.1-15.2)
[2024-04-19] MEDS ORDERED: NA CHLORIDE 0.9% 2,000 ML ONE (10:40)
[2024-04-19] MEDS ORDERED: HYDROMORPHONE HCL 0.5 MG/0.5 ML INJ ONE (10:40)
[2024-04-19] MEDS ORDERED: NA CHLORIDE 0.9% 100 ML ONE (10:40)
[2024-04-19] MEDS ORDERED: FAMOTIDINE 20 MG/2 ML VIAL IV ONE (10:40)
[2024-04-19] MEDS ORDERED: ONDANSETRON 4 MG/2 ML VIAL ONE (10:40)
[2024-04-19] MEDS ORDERED: TDAP (DIPHTH,PERTUSS(ACELL),TET VAC) 0.5 ML VIAL IMVAC ONE (10:40)
[2024-04-19] MEDS ORDERED: PIPERACIL/TAZO 3.375 GM VIAL IV ONE (10:41)
[2024-04-19 10:46] LABS: PT Prothrombin Time 15.7 SECONDS (9.4-12.5); Protime INR 1.42
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
[2024-04-19 10:50] LABS: ALT/SGPT 15 U/L (16-61); AST/SGOT 11 U/L (15-37); Albumin 2.3 g/dL (3.4-5.0); Albumin/Globulin Ratio 0.3 (1.1-1.8); Alkaline Phosphatase 55 U/L (45-117); BUN Blood Urea Nitrogen 9 mg/dL (7-18); Bicarbonate 28 mEq/L (21-32); Bilirubin Direct < 0.2 mg/dL (0-0.2); Bilirubin Indirect, Calculated 0.1 mg/dL (0.2-0.8); Bilirubin Total 0.3 mg/dL (0.2-1.0); Globulin 6.7 g/dL (2.3-3.5); Glomerular Filtration Rate 99 ml/min (=/>90); Glucose Level 140 mg/dL (74-106); Magnesium 1.5 mg/dL (1.6-2.4); NT PRO-BNP 56 pg/mL (<125); Sodium Level 137 mEq/L (136-145); Troponin High Sensitivity 4.3 pg/mL (<58.9)
--- NOTE | 2024-04-19 10:50 | EDPHYS ---
Physician Documentation [facility] Name: Man Davis Age: 28 yrs Sex: Male : 1995 Arrival Date: 04/19/2024 Time: 09:05 Bed 18 Private MD: ED Physician Ajith Pablo HPI: 04/19 09:51 This 28 yrs old Black Male presents to ER via Ambulatory with complaints of Abscess. angelina 09:51 The patient presents with an abscess of the abdomen, pelvis and left leg. Description: angelina confluent, irregular, draining, erythematous. Onset: The symptoms/episode began/occurred 1 week(s) ago. Possible cause(s): supp hid. Associated signs and symptoms: Pertinent positives: drainage, erythema, swelling. Modifying factors: the symptoms are alleviated by remaining still, the symptoms are aggravated by movement, walking, pressure, touching. Severity of symptoms: At their worst the symptoms were moderate, in the emergency department the symptoms are actually worse, markedly. Historical: - Allergies: 09:33 Chlorhexidine Gluconate; ap3 - PMHx: 09:33 Anemia; Hidradenitis Suppurativa; ap3 - Immunization history:: Client reports receiving the 2nd dose of the Covid vaccine. - Infectious Disease History:: unknown. - Social history:: Smoking status: Reported history of juuling and/or vaping. - Family history:: not pertinent. ROS: 09:51 Constitutional: Negative for fever, chills, and weight loss, Eyes: Negative for injury, angelina pain, redness, and discharge, ENT: Negative for injury, pain, and discharge, Neck: Negative for injury, pain, and swelling, Respiratory: Negative for shortness of breath, cough, wheezing, and pleuritic chest pain, Abdomen/GI: Negative for abdominal pain, nausea, vomiting, diarrhea, and constipation, Back: Negative for injury and pain, : Negative for injury, bleeding, discharge, and swelling, Neuro: Negative for headache, weakness, numbness, tingling, and seizure, Psych: Negative for depression, anxiety, suicide ideation, homicidal ideation, and hallucinations, Allergy/Immunology: Negative for hives, rash, and allergies, Endocrine: Negative for neck swelling, polydipsia, polyuria, polyphagia, and marked weight changes, Hematologic/Lymphatic: Negative for swollen nodes, abnormal bleeding, and unusual bruising, 09:51 Cardiovascular: Positive for palpitations, 09:51 MS/extremity: Positive for erythema, pain, swelling, tenderness, warmth, of the abdomen, pelvis, right leg and left leg, Exam: 09:51 Constitutional: This is a well developed, well nourished patient who is awake, alert, angelina and in no acute distress. Head/Face: Normocephalic, atraumatic. Eyes: Pupils equal round and reactive to light, extra-ocular motions intact. Lids and lashes normal. Conjunctiva and sclera are non-icteric and not injected. Cornea within normal limits. Periorbital areas with no swelling, redness, or edema. ENT: Nares patent. No nasal discharge, no septal abnormalities noted. Tympanic membranes are normal and external auditory canals are clear. Oropharynx with no redness, swelling, or masses, exudates, or evidence of obstruction, uvula midline. Mucous membranes moist. Neck: Trachea midline, no thyromegaly or masses palpated, and no cervical lymphadenopathy. Supple, full range of motion without nuchal rigidity, or vertebral point tenderness. No Meningismus. Chest/axilla: Normal chest wall appearance and motion. Nontender with no deformity. No lesions are appreciated. Respiratory: Lungs have equal breath sounds bilaterally, clear to auscultation and percussion. No rales, rhonchi or wheezes noted. No increased work of breathing, no retractions or nasal flaring. Abdomen/GI: Soft, non-tender, with normal bowel sounds. No distension or tympany. No guarding or rebound. No evidence of tenderness throughout. Back: No spinal tenderness. No costovertebral tenderness. Full range of motion. Male : Normal genitalia with no discharge or lesions. Neuro: Awake and alert, GCS 15, oriented to person, place, time, and situation. Cranial nerves II-XII grossly intact. Motor strength 5/5 in all extremities. Sensory grossly intact. Cerebellar exam normal. Normal gait. Psych: Awake, alert, with orientation to person, place and time. Behavior, mood, and affect are within normal limits. 09:51 Cardiovascular: Rate: tachycardic, actual rate is 138 bpm, Rhythm: regular, Pulses: Pulses are 4+ in bilateral radial, brachial, femoral, popliteal, posterior tibial and and dorsalis pedis arteries.. Heart sounds: normal, normal S1and S2, 13:06 ECG was reviewed by the Attending Physician. [facility] Vital Signs: 09:31 BP 146 / 87; Pulse 138; Resp 18; Temp 98.8; Pulse Ox 100% ; Weight 135.17 kg; Height 6 ap3 ft. 3 in. ; Pain 9/10; 11:30 BP 100 / 54; Pulse 87; Resp 16; Pulse Ox 100% on R/A; db 12:00 BP 104 / 54; Pulse 73; Resp 16; Pulse Ox 100% on R/A; db 13:51 BP 110 / 62; Pulse 102; Resp 16; Temp 98.9; Pulse Ox 100% on R/A; db 09:31 Body Mass Index 37.25 (135.17 kg, 190.5 cm) ap3 09:31 Pain Scale: Adult ap3 MDM: 09:23 Patient medically screened. [facility] 09:55 Differential diagnosis: abscess, cellulitis. Data reviewed: vital signs, nurses notes, [facility] lab test result(s), EKG, radiologic studies, plain films. Consideration of Admission/Observation Escalation of care including admission/observation considered. I considered the following discharge prescriptions or medication management in the emergency department Medications were administered in the Emergency Department. See MAR. Independent interpretation of the following test(s) in the Emergency Department EKG: See my EKG interpretation above. Test considered but Not performed: Ultrasound no abd usg. Care significantly affected by the following chronic conditions: Obesity, anemia, hidradenitis. 04/19 09:50 Order name: Basic Metabolic Panel; Complete Time: 10:56 [facility] 04/19 09:50 Order name: CBC with Diff; Complete Time: 12:16 [facility] 04/19 09:50 Order name: LFT's; Complete Time: 10:56 [facility] 04/19 09:50 Order name: Magnesium; Complete Time: 10:56 [facility] 04/19 09:50 Order name: NT PRO-BNP; Complete Time: 10:56 [facility] 04/19 09:50 Order name: PT-INR; Complete Time: 10:56 [facility] 04/19 09:50 Order name: Troponin HS; Complete Time: 10:56 [facility] 04/19 09:50 Order name: Blood Culture Adult (2) [facility] 04/19 09:50 Order name: Lactate w/ 2H reflex if indic.; Complete Time: 10:56 [facility] 04/19 09:50 Order name: Type And Screen; Complete Time: 13:06 [facility] 04/19 09:50 Order name: Wound Culture [facility] 04/19 10:38 Order name: CBC Smear Scan; Complete Time: 12:16 [facility] 04/19 10:49 Order name: Bb Add On 04/19 10:55 Order name: Packed RBC Leukored [facility] 04/19 12:09 Order name: CBC with Automated Diff [facility] 04/19 12:09 Order name: CBC with Automated Diff [facility] 04/19 12:09 Order name: Comprehensive Metabolic Panel [facility] 04/19 12:09 Order name: Comprehensive Metabolic Panel [facility] 04/19 12:52 Order name: ABO/RH no charge; Complete Time: 13:06 [facility] 04/19 09:50 Order name: XRAY Chest (1 view); Complete Time: 12:16 [facility] 04/19 09:57 Order name: CT Abd/Pelvis - IV Contrast Only: go through upper thighs; Complete Time: [facility] 12:16 04/19 09:50 Order name: EKG; Complete Time: 09:51 [facility] 04/19 12:09 Order name: CONS Physician Consult [facility] 04/19 09:50 Order name: IV Saline Lock; Complete Time: 11:39 [facility] 04/19 09:50 Order name: Labs collected and sent; Complete Time: 11:39 [facility] 04/19 09:50 Order name: O2 Per Protocol; Complete Time: 11:39 [facility] 04/19 09:50 Order name: O2 Sat Monitoring; Complete Time: 11:39 [facility] 04/19 10:52 Order name: Labs - recollect needed: collect abo\E\rh no charge; Complete Time: 13:16 04/19 12:17 Order name: IV Saline Lock - Large Bore; Complete Time: 13:11 [facility] EC:06 Rate is 81 beats/min. Rhythm is regular. QRS Bethany is Normal. ND interval is normal. QT angelina interval is normal. No Q waves. T waves are Normal. No ST changes noted. Clinical impression: NSR w/ Non-specific ST/T Changes and No evidence of ischemia. Interpreted by me. Reviewed by me. Administered Medications: 10:48 Drug: NS 0.9% IV 1000 ml IV at 1 bolus Per protocol; 1000 mL bolus Route: IV; Rate: 1 db bolus; Site: right antecubital; 13:17 Follow up: Response: No adverse reaction; IV Status: Completed infusion; IV Intake: db 1000ml 10:49 Drug: HYDROmorphone IVP 1 mg IVP once Route: IVP; Site: right antecubital; db 13:19 Follow up: Response: No adverse reaction db 10:50 Drug: Ondansetron IVP 4 mg IVP once; over 2 minutes Route: IVP; Site: right antecubital;db 13:19 Follow up: Response: No adverse reaction db 10:52 Drug: Famotidine IVP 20 mg IVP once; dilute with 10 mL 0.9% NaCl; give over 2 minutes db Route: IVP; Site: right antecubital; 13:19 Follow up: Response: No adverse reaction db 10:57 Drug: Boostrix Tdap IM 0.5 ml IM once; as a single dose Route: IM; Site: left deltoid; db 13:17 Follow up: Response: (VIS) Vaccine information sheet provided today. Questions and/or db concerns addressed. VIS edition date: May 03, 2021.; No adverse reaction 11:02 CANCELLED (Duplicate Order): tetanus toxoid,adsorbed0.5 ml IM once; Provide Vaccine db Information Statement (VIS). 11:35 Drug: Piperacillin-Tazobactam IVPB 3.375 grams IVPB once over 60 mins; (mix in NS 100 db mL) Route: IVPB; Infused Over: 60 mins; Site: right antecubital; 12:30 Follow up: Response: No adverse reaction; IV Status: Completed infusion; IV Intake: db 100ml 11:39 Drug: NS 0.9% IV 1000 ml IV at 1 bolus Per protocol; 1000 mL bolus Route: IV; Rate: 1 db bolus; Site: right antecubital; 12:30 Follow up: Response: No adverse reaction; IV Status: Completed infusion; IV Intake: db 1000ml 12:00 Drug: Magnesium Sulfate IVPB 1 grams IVPB once over 1 hrs Route: IVPB; Infused Over: 1 db hrs; Site: right antecubital; 13:18 Follow up: Response: No adverse reaction; IV Status: Completed infusion; IV Intake: db 100ml 12:00 Drug: Potassium PO Effervescent Tablet 50 mEq PO once; dissolve in 4 ounces of water or db juice Route: PO; 13:18 Follow up: Response: No adverse reaction db 12:35 Drug: vancoMYCIN IVPB 2 grams IVPB at calculated rate once Route: IVPB; Rate: db calculated rate; Site: left upper arm; 12:50 Drug: NS 0.9% with KCl IV 20 mEq/L 1000 ml IV at 125 ml/hr continuous Route: IV; Rate: db 125 ml/hr; Site: left upper arm; Disposition Summary: 04/19/24 10:49 Hospitalization Ordered Notes: Hospitalization Status: Inpatient Admission angelina Provider: Lisa Marin cha Condition: Stable angelina Problem: new angelina Symptoms: have improved angelina Bed/Room Type: Standard angelina Location: Telemetry/MedSurg (Inpatient)(04/19/24 13:42) bd Room Assignment: 408(04/19/24 13:53) bd Diagnosis - Hidradenitis suppurativa angelina - Cutaneous abscess of abdominal wall angelina - Cutaneous abscess of limb angelina - Anemia, unspecified angelina - Elevated white blood cell count angelina - Tachycardia, unspecified angelina - Hypokalemia angelina - Hypomagnesemia angelina Forms: - Medication Reconciliation Form angelina - SBAR form angelina - Leadership Thank You Letter angelina Signatures: Dispatcher [employer] EDMS Monika Monge Corey, MD MD cha Prokisch, Amanda, RN RN ap3 Debbie Hou RN RN db Corrections: (The following items were deleted from the chart) 09:51 09:51 BASIC METABOLIC PANEL+C.LAB.BRZ ordered. EDMS EDMS 09:51 09:51 CBC+H.LAB.BRZ ordered. EDMS EDMS 09:51 09:51 HEPATIC FUNCTION+C.LAB.BRZ ordered. EDMS EDMS 09:51 09:51 MAGNESIUM+C.LAB.BRZ ordered. EDMS EDMS 09:51 09:51 PROBNP+C.LAB.BRZ ordered. EDMS EDMS 09:51 09:51 PROTIME (+INR)+COAG.LAB.BRZ ordered. EDMS EDMS 09:51 09:51 Troponin High Sensitivity+C.LAB.BRZ ordered. EDMS EDMS 09:51 09:51 BLOOD CULTURE*+BA.LAB.BRZ ordered. EDMS EDMS 09:51 09:51 LACTATE+C.LAB.BRZ ordered. EDMS EDMS 09:51 09:51 TYPE AND SCREEN+BB.LAB.BRZ ordered. EDMS EDMS 09:51 09:51 Wound Culture+BA.LAB.BRZ ordered. EDMS EDMS 09:57 09:57 Abdomen Pelvis W Con+CT.RAD.BRZ ordered. EDMS EDMS 10:55 10:46 PACKED RBC LEUKORED+BB.LAB.BRZ ordered. EDMS EDMS 10:55 10:48 ABO/RH typing ordered. EDMS EDMS 10:55 10:48 Antibody Screen ordered. EDMS EDMS 11:02 09:50 Tetanus Toxoid,Adsorbed IM 0.5 ml IM once; Provide Vaccine Information Statement db (VIS). ordered. [facility] 11:02 11:02 Tetanus Toxoid,Adsorbed IM 0.5 ml IM once; Provide Vaccine Information Statement db (VIS). ordered. 12:57 10:49 Telemetry/MedSurg (Inpatient) [facility] bd 12:57 10:49 angelina bd 13:42 12:57 BR ER HOLD bd bd 13:42 12:57 ERHOLD- bd bd 13:53 13:42 220 bd bd
[2024-04-19] MEDS: VANCOMYCIN 2 GM in NA CHLORIDE 0.9% 500 ML IVPB ONE (11:15)
[2024-04-19 11:20] LABS: Blood Morphology Comment NOTED (NOT SEEN); Hypochromasia 2+; Microcytosis 2+; Platelet Estimate INCR; Rouleau NOTED; Target Cells 1+; White Blood Cell Scan OK (OK)
--- NOTE | 2024-04-19 11:47 | RAD REPORT ---
EXAM DESCRIPTION: CT - Abdomen Pelvis W Contrast - 04/19/2024 11:31 am CLINICAL HISTORY: Abdominal pain COMPARISON: none. TECHNIQUE: Computed axial tomography of the abdomen pelvis was obtained. 100 cc Isovue-300 was admin istered intravenously. Oral contrast was not requested which limits evaluation of bowel and appendix All CT scans are performed using dose optimization technique as appropriate and may include automated exposure control or mA/KV adjustment according to patient size. FINDINGS: The liver, spleen, pancreas, adrenal and kidneys appear unremarkable. There is no evidence of diverticulitis. There appears to be posterior subcutaneous ulceration lower pelvis. Multiple areas of skin thickening are present. Multiple subcutaneous lesions are noted. IMPRESSION: Skin thickening with subcutaneous lesions presumably infectious. Mild inguinal lymphadenopathy probably reactive in nature. No intraabdominal abscess
[2024-04-19] MEDS ORDERED: POTASSIUM 25 MEQ EFFERV TAB ONE (11:48)
[2024-04-19] MEDS ORDERED: KCL 20 MEQ/100 mL IVPB 100 ML IV ONE (11:48)
[2024-04-19] MEDS ORDERED: MAGNESIUM SULFATE 1 gm IVPB 1 GM/100 ML BAG IV ONE (11:49)
--- NOTE | 2024-04-19 11:51 | RAD REPORT ---
EXAM DESCRIPTION: Elva Single View04/19/2024 10:31 am CLINICAL HISTORY: Cough COMPARISON: none FINDINGS: The lungs appear clear of acute infiltrate. The heart is borderline enlarged. Dextrocardia is present IMPRESSION: No acute abnormalities displayed
[2024-04-19] MEDS ORDERED: ONDANSETRON 4 MG/2 ML VIAL IV PRN (12:03)
[2024-04-19] MEDS ORDERED: ACETAMINOPHEN 500 MG TAB PO PRN (12:03)
--- NOTE | 2024-04-19 12:13 | P.HP ---
Certification for Inpatient Patient History - Past Medical/Surgical History Diabetic: No -: GERD -: DM 2 -: Anemia -: Hidradenitis suppurativa -: Nicotine dependence - Family History Father Medical History: Hypertension Brother Medical History: Diabetes - Social History Alcohol use: No <Lisa Marin - Last Filed: 04/19/24 12:13> <Ngozi Shine - Last Filed: 04/20/24 09:59> Allergies chlorhexidine [From Hibiclens] Allergy (Verified 11/05/23 09:31) Hives/Rash Physical Examination - Studies Laboratory Data (last 24 hrs) 04/19/24 04/19/24 04/19/24 10:15 10:15 10:15 WBC 14.10 H Hgb 7.2 L Hct 23.5 L Plt Count 587 H PT 15.7 H INR 1.42 Sodium 137 Potassium 3.0 L BUN 9 Creatinine 1.06 Glucose 140 H Magnesium 1.5 L Total Bilirubin 0.3 AST 11 L ALT 15 L Alkaline Phosphatase 55 <Lisa Marin - Last Filed: 04/19/24 12:13> - Studies Laboratory Data (last 24 hrs) 04/19/24 04/19/24 04/19/24 10:15 10:15 10:15 WBC 14.10 H Hgb 7.2 L Hct 23.5 L Plt Count 587 H PT 15.7 H INR 1.42 Sodium 137 Potassium 3.0 L BUN 9 Creatinine 1.06 Glucose 140 H Magnesium 1.5 L Total Bilirubin 0.3 AST 11 L ALT 15 L Alkaline Phosphatase 55 <Ngozi Shine - Last Filed: 04/20/24 09:59> Assessment & Plan - Advance Directives Does patient have a Living Will: No Does patient have a Durable POA for Healthcare: No <Lisa Marin - Last Filed: 04/19/24 12:13> - Problems (Diagnosis) (1) Hidradenitis suppurativa Current Visit: No Status: Acute (2) Perirectal abscess Current Visit: Yes Status: Acute (3) Abdominal wall abscess Current Visit: Yes Status: Acute (4) Anemia Current Visit: Yes Status: Acute - Plan Assessment plan 04/20 Procedure performed: Incision, drainage and debridement of abdominal wall and left perirectal abscess Surgery consult to eval for I&D, n.p.o. IV vancomycin, Zosyn, as needed analgesics, antiemetics, Anemia Type and cross, Transfuse less than 7 Trend H&H Iron studies Full code Diet regular DVT SCDs Disposition Home independent prior Discharge Plan: Home - Code Status/Comfort Care Code Status: Full Code Critical Care: No Time Spent Managing PTS Care (In Minutes): 55 <Ngozi Shine - Last Filed: 04/20/24 09:59>
[2024-04-19] MEDS ORDERED: NS KCL 20MEQ 1,000 ML IV ONE (12:53)
[2024-04-19] MEDS: NA CHLORIDE 0.9% 1,000 ML IV SCH (13:00)
[2024-04-19] MEDS: MORPHINE 2 MG/ML SYR IV PRN (15:42)
[2024-04-19] MEDS: PIPER TAZO 3.375 GM in NA CHLORIDE 0.9% 100 ML IV SCH (20:11)
--- NOTE | 2024-04-19 20:21 | CON ---
Date of Consultation: 04/19/2024 Reason: Hidradenitis complications in the perineum and lower abdomen. History Of Present Illness: The patient is a 28-year-old gentleman who presents with infection in th e abdomen, in the perineum, in the left leg, and left perirectal region. He denies any fever. He do es have purulent discharge. A history of chronic purulent discharge is from the hidradenitis. He al so has erythema and swelling and increasing pain. Denies any current fever or chills. He had an abs cess in the left buttock approximately 6 months ago, which was I and D'ed when he came to the [facility] for a couple of postop visits and then he did not follow up. No sore throat, runny nose, cough, headaches, or dizziness. No chest pain. Review of Systems: Otherwise unremarkable. Past Medical History: Anemia and chronic hidradenitis suppurative in the perineum and lower abdomen region. Allergies: INCLUDE CHLORHEXIDINE. THE PATIENT VAPES. Family History: Noncontributory. Physical Examination: Vital Signs: Stable. Currently, he is afebrile. General: He is awake and alert. Head and Neck: No masses. Chest: Clear. Heart: S1, S2. Abdomen: Soft, nondistended. Positive bowel sounds in the lower abdomen. Skin: There is an area of subcutaneous abscess approximately 4 x 6 cm with fluctuant warmth, redness , tenderness. There is also an area in the left perirectal region with induration with this slight f luctuance, tenderness. There may be other areas, but it is too painful to examine the patient in the inguinal creases. He has multiple areas of draining sinuses present with purulent discharge associa rosie with slight warmth, redness, and tenderness. Extremities: Adequately perfused, nontender. NEURO: Nonfocal. Laboratory Data: Shows a white count of 14,100. Chemistry reviewed. Lactic acid is 1.2. Potassium is 3.0. The patient had a CT of the abdomen and pelvis, which is reviewed, shows skin thickening an d subcutaneous lesions presumably infectious small inguinal lymphadenopathy, probably reactive in niurka ure. No intraabdominal abscess. Assessment: A 28-year-old gentleman with hidradenitis suppurative with complication emanating from t hat disease including abscess of the lower abdomen and the left perirectal region. Recommendations: N.p.o., IV fluids, IV antibiotics to the OR tomorrow morning for I and D of multipl e abscesses in the perineum and abdominal wall. The patient understands risks, benefits, and alterna tives and agrees to procedure. Plan of care was discussed with the patient and Dr. Marin. DESMOND/JONES Voice ID: [id number] Report ID: [id number]
[2024-04-19] MEDS: VANCOMYCIN 2 GM in NA CHLORIDE 0.9% 500 ML IVPB SCH (23:22)
[2024-04-20] MEDS ORDERED: LIDOCAINE 1% MPF 5 ML VIAL ONE (07:26)
[2024-04-20] MEDS ORDERED: FENTANYL CITR 100 MCG/2 ML ONE (07:27)
[2024-04-20] MEDS ORDERED: MIDAZOLAM HCL 2 MG/2 ML INJ ONE (07:27)
[2024-04-20] MEDS ORDERED: propofoL 200 MG/20 ML VIAL IV ONE (07:27)
[2024-04-20] MEDS ORDERED: dexAMETHasone 10 MG/ML VIAL ONE (08:02)
[2024-04-20] MEDS ORDERED: ONDANSETRON 4 MG/2 ML VIAL ONE (08:02)
[2024-04-20] MEDS ORDERED: KETOROLAC 30 MG/ML INJ ONE (08:02)
[2024-04-20] MEDS ORDERED: MORPHINE 10 MG/ML VIAL ONE (08:14)
[2024-04-20] MEDS ORDERED: NS 0.9% VIAL 10 ML ONE (08:18)
[2024-04-20] MEDS ORDERED: Phenylephrine HCl 10 MG/ML 1 ML VIAL ONE (08:18)
[2024-04-20] MEDS: BUPIVACAINE 0.5% PF 10 ML VIAL ONE (08:20)
--- NOTE | 2024-04-20 08:52 | P.OP ---
Date of Service: 04/20/24 Preop diagnosis: Abdominal wall and left perirectal abscess Postop diagnosis: Same Procedure performed: Incision, drainage and debridement of abdominal wall and left perirectal abscess Surgeon: Shiraz Alatorre MD Dinkey Locomotive Operator: LINH Chen Estimated blood loss: Minimal Specimen: Pus and debridement tissue Findings: As above, hidradenitis suppurativa Anesthesia: General Complications: None Drains: None Fluids and blood products: Nonapplicable Disposition: Recovery room Operative note: Patient brought to the OR and placed in supine position. General anesthesia began. Patient placed in the lithotomy position. Patient prepped and draped in usual sterile fashion. Marcaine 0.5% infiltrated locally. 15 blade used to make a 3 cm incision over the most fluctuant part of the lower abdominal wall abscess just to the left of midline subcutaneous tissue divided and pus under pressure evacuated, loculations broken and necrotic tissue debrided. Wound irrigated and bleeding controlled cautery. Wet-to-dry normal saline dressing change applied. On the left perirectal region approximately a 4 x 2 cm incision made over fluctuant part of an abscess. Subcutaneous tissue divided and pus evacuated. Necrotic tissue debrided. Bleeding controlled cautery. Wet-to-dry normal saline dressing change applied. Patient had another small abscess in the gluteal crease. 3 cm incision made to evacuate that abscess. Wet-to-dry normal saline dressing change applied. Entire area which consists of hidradenitis suppurativa was dressed with Adaptic, gauze and ABD. Patient awakened and taken to recovery room in good general condition. Please note cultures were done. CC:
[2024-04-20] MEDS: NA CHLORIDE 0.9% 1,000 ML ONE (09:04)
--- NOTE | 2024-04-20 09:52 | P.PN ---
Date of Service: 04/20/24 Subjective Low-grade fever, on IV antibiotics, wound cultures pending pain controlled with as needed analgesics, surgery following status post I&D Review of Systems negative unless listed in HPI Physical Examination - Vital Signs reviewed - Physical Exam General: Alert, In no apparent distress, Oriented x3 HEENT: Atraumatic, Normocephalic, PERRLA Neck: Supple, 2+ carotid pulse no bruit, JVD not distended Respiratory: Clear to auscultation bilaterally, unlabored Cardiovascular: No edema, Normal pulses, Regular rate/rhythm, Normal S1 S2 Capillary refill: <2 Seconds Gastrointestinal: Normal bowel sounds, Soft and benign, Non-distended Musculoskeletal: No clubbing, No swelling, generalized weakness Integumentary: No rashes, No breakdown, perirectal abscess, noted tenderness Neurological: Normal gait, Normal speech, Normal strength at 5/5 x4 extr, Normal tone Lymphatics: No axilla or inguinal lymphadenopathy Assessment & Plan - Advance Directives Does patient have a Living Will: No Does patient have a Durable POA for Healthcare: No <Lisa Marin - Last Filed: 04/19/24 12:13> - Problems (Diagnosis) (1) Hidradenitis suppurativa Current Visit: No Status: Acute (2) Perirectal abscess Current Visit: Yes Status: Acute (3) Abdominal wall abscess Current Visit: Yes Status: Acute (4) Anemia Current Visit: Yes Status: Acute - Plan Assessment plan 04/20 Procedure performed: Incision, drainage and debridement of abdominal wall and left perirectal abscess Surgery consult to eval for I&D, n.p.o. IV vancomycin, Zosyn, as needed analgesics, antiemetics, Wound cultures, blood cultures pending Anemia Type and cross, Transfuse less than 7 Trend H&H Iron studies Full code Diet regular DVT SCDs Disposition Home independent prior Discharge Plan: Home - Code Status/Comfort Care Code Status: Full Code Critical Care: No Time Spent Managing PTS Care (In Minutes): 55
--- NOTE | 2024-04-20 10:07 | P.HP ---
Certification for Inpatient Patient admitted to: Inpatient With expected LOS: >2 Midnights Patient will require the following post-hospital care: Home Health Services Practitioner: I am a practitioner with admitting privileges, knowledge of patient current condition, hospital course, and medical plan of care. Services: Services provided to patient in accordance with Admission requirements found in Title 42 Section 412.3 of the Code of Federal Regulations Patient History Date of Service: 04/19/24 Reason for admission: Cellulitis/hidradenitis suppurativa History of Present Illness: Patient is a 28-year-old gentleman came to the hospital with drainage from multiple areas where he has been diagnosed with hidradenitis suppurativa. Patient has significant amount of drainage from the groin region in the axillary region. Patient on prior treatment with IV antibiotics. Currently patient is having a significant amount of drainage and he came into the ER. In the ER patient was seen by the emergency room physician and started on IV antibiotics. Patient will be admitted for further evaluation by general surgery. However, patient will need outpatient follow-up with rheumatology and infectious disease for multidisciplinary approach to treatment of his hidradenitis suppurativa. Allergies chlorhexidine [From Hibiclens] Allergy (Verified 11/05/23 09:31) Hives/Rash - Past Medical/Surgical History Has patient received pneumonia vaccine in the past: No Diabetic: No -: GERD -: DM 2 -: Anemia -: Hidradenitis suppurativa -: Nicotine dependence Past Surgical History: Patient denies surgical history - Family History Father Medical History: Hypertension Brother Medical History: Diabetes - Social History Smoking Status: Former smoker Alcohol use: No CD- Drugs: No Caffeine use: No Place of Residence: Home Review of Systems 10-point ROS is otherwise unremarkable Physical Examination - Vital Signs Temperature: 99 F Blood Pressure: 118/64 Pulse: 88 Respirations: 18 Pulse Ox (%): 99 - Physical Exam General: Alert, In no apparent distress, Oriented x3 HEENT: Atraumatic, PERRLA, Mucous membr. moist/pink, EOMI, Sclerae nonicteric Neck: Supple, 2+ carotid pulse no bruit, No LAD, Without JVD or thyroid abnormality Respiratory: Clear to auscultation bilaterally, Normal air movement Cardiovascular: Regular rate/rhythm, Normal S1 S2, No murmurs Gastrointestinal: Normal bowel sounds, Soft and benign, Non-distended, No tenderness Musculoskeletal: No clubbing, No tenderness, Swelling Integumentary: Skin lesion, Tenderness/swelling, Erythema Neurological: Normal gait, Normal speech, Normal strength at 5/5 x4 extr, Normal tone, Sensation intact, Cranial nerves 3-12 intact, Normal affect Lymphatics: No axilla or inguinal lymphadenopathy - Studies Laboratory Data (last 24 hrs) 04/19/24 04/19/24 04/19/24 10:15 10:15 10:15 WBC 14.10 H Hgb 7.2 L Hct 23.5 L Plt Count 587 H PT 15.7 H INR 1.42 Sodium 137 Potassium 3.0 L BUN 9 Creatinine 1.06 Glucose 140 H Magnesium 1.5 L Total Bilirubin 0.3 AST 11 L ALT 15 L Alkaline Phosphatase 55 Assessment & Plan - Problems (Diagnosis) (1) Hidradenitis suppurativa Current Visit: No Status: Acute (2) Anemia Current Visit: Yes Status: Acute (3) Cellulitis Current Visit: Yes Status: Acute - Plan Plan: 1. Patient will need to continue with IV antibiotics 2. Anemia studies including iron levels, B12 levels, and retake count 3. Outpatient workup and follow through with rheumatology and infectious disease 4. GI and DVT prophylaxis Discharge Plan: Home Plan to discharge in: Greater than 2 days - Advance Directives Does patient have a Living Will: No Does patient have a Durable POA for Healthcare: No - Code Status/Comfort Care Code Status Assessed: Yes Code Status: Full Code Critical Care: No Time Spent Managing PTS Care (In Minutes): 45
[2024-04-20 11:54] LABS: Absolute Eosinophils 0.1 K/uL (0-0.5); Absolute Lymphocytes (CBC) 0.7 K/uL (0.7-4.9); Absolute Monocytes 0.2 K/uL (0.1-1.3); Basophils % 0.2 % (0-1.3); Eosinophils % 0.4 % (0-4.4); Hematocrit 23.7 % (39.6-49.0); Hemoglobin 7.1 g/dL (13.6-17.9); Lymphocytes % 4.5 % (15.3-44.8); MCH 18.8 pg (27.0-35.0); MCV 62.6 fL (80-100); Neutrophils % 93.9 % (41.7-73.7); Platelets 522 thou/uL (152-406); RBC Red Blood Cell Count 3.78 M/uL (4.33-5.43); Red Cell Distribution Width 20.1 % (12.1-15.2)
[2024-04-20 12:12] LABS: Albumin/Globulin Ratio 0.3 (1.1-1.8); Alkaline Phosphatase 52 U/L (45-117); Anion Gap 7.1 mEq/L (5.0-15.0); BUN Blood Urea Nitrogen 6 mg/dL (7-18); Bicarbonate 29 mEq/L (21-32); Bilirubin Total 0.2 mg/dL (0.2-1.0); Globulin 6.4 g/dL (2.3-3.5); Glomerular Filtration Rate 99 ml/min (=/>90); Glucose Level 212 mg/dL (74-106); Potassium 4.1 mEq/L (3.5-5.1); Protein, Total 8.4 g/dL (6.4-8.2); Sodium Level 138 mEq/L (136-145)
[2024-04-20 12:18] LABS: ALT/SGPT < 14 U/L (16-61); AST/SGOT < 10 U/L (15-37)
[2024-04-20] MEDS: HYDROMORPHONE HCL 2 MG/ML inj IV PRN (14:54)
[2024-04-21] MEDS: HYDROCODONE/APAP 7.5/325 MG TAB PO PRN (04:24)
--- NOTE | 2024-04-21 09:03 | P.PN ---
Date of Service: 04/21/24 Subjective pain controlled with as needed analgesics, wound care per surgery recommendations, nursing to teach patient/family wound care Review of Systems negative unless listed in HPI Physical Examination - Vital Signs reviewed - Physical Exam General: Alert, In no apparent distress, Oriented x3, afebrile HEENT: Atraumatic, Normocephalic, PERRLA Neck: Supple, 2+ carotid pulse no bruit, Respiratory: Clear to auscultation bilaterally, unlabored Cardiovascular: No edema, Normal pulses, Regular rate/rhythm, Capillary refill: <2 Seconds Gastrointestinal: Normal bowel sounds, Musculoskeletal: No clubbing, No swelling, generalized weakness Integumentary: No rashes, No breakdown, perirectal abscess, noted tenderness, dry dressing Neurological: Normal gait, Normal speech, Normal strength at 5/5 x4 extr, Normal tone Lymphatics: No axilla or inguinal lymphadenopathy Assessment & Plan - Advance Directives Does patient have a Living Will: No Does patient have a Durable POA for Healthcare: No <Lisa Marin - Last Filed: 04/19/24 12:13> - Problems (Diagnosis) (1) Hidradenitis suppurativa Current Visit: No Status: Acute (2) Perirectal abscess Current Visit: Yes Status: Acute (3) Abdominal wall abscess Current Visit: Yes Status: Acute (4) Anemia Current Visit: Yes Status: Acute - Plan Assessment plan 04/20 Procedure performed: Incision, drainage and debridement of abdominal wall and left perirectal abscess Surgery consult to eval for I&D, n.p.o. IV vancomycin, Zosyn, as needed analgesics, antiemetics, Wound cultures, =1 gm + rods,, gram-positive cocci in pairs and chains blood cultures no growth daily wound care Anemia Type and cross, Transfuse less than 7 Trend H&H Iron studies Full code Diet regular DVT SCDs Disposition Home independent prior Discharge Plan: Home - Code Status/Comfort Care Code Status: Full Code Critical Care: No Time Spent Managing PTS Care (In Minutes): 55
--- NOTE | 2024-04-21 10:53 | PN ---
Date of Progress Note: 04/21/2024 Subjective: The patient is awake, alert. No complaints except for incisional pain. Objective: Vital Signs: Stable. He is afebrile. Laboratory Data: White count of 16,000 with a left shift. Cultures are still pending. Dressing is clean, dry, intact. Assessment: Status post incision and drainage of multiple abscesses, and the patient with a complica rosie hidradenitis suppurativa. Recommendations: Continue IV antibiotics as ordered and then adjust antibiotics accordingly based on the cultures. Wound care as ordered. Hopefully discharge in 24 to 48 hours. Teach the patient and family how to change dressing. /MODL Voice ID: [id number] Report ID: [id number]
[2024-04-21] MEDS: VANCOMYCIN 2 GM in NA CHLORIDE 0.9% 500 ML IVPB SCH (11:39)
--- NOTE | 2024-04-21 13:24 | EKG ---
Test Date: 2024-04-19 Test Time: 13:02:22 Sinker Winder: ROBERTO MEASUREMENT RESULTS: Intervals: Rate: 81 NE: 160 QRSD: 102 QT: 390 QTc: 453 Brant: P: 39 NE: 160 QRS: 57 T: 42 INTERPRETIVE STATEMENTS: Normal sinus rhythm Nonspecific ST and T wave abnormality Abnormal ECG No previous ECG available for comparison Electronically Signed On 04-21-24 13:16:01 CDT by Titus Rosa
[2024-04-21 17:22] VITALS: BMI 37.1
[2024-04-22 03:09] VITALS: O2SAT 100
[2024-04-22 08:48] LABS: Absolute Basophils 0.1 K/uL (0-0.5); Absolute Eosinophils 0.2 K/uL (0-0.5); Absolute Lymphocytes (CBC) 2.6 K/uL (0.7-4.9); Absolute Monocytes 0.7 K/uL (0.1-1.3); Absolute Neutrophil 9.1 K/uL (1.8-8.0); Basophils % 0.7 % (0-1.3); Eosinophils % 1.3 % (0-4.4); Hematocrit 21.8 % (39.6-49.0); Hemoglobin 6.4 g/dL (13.6-17.9); Lymphocytes % 20.4 % (15.3-44.8); MCH 18.4 pg (27.0-35.0); MCHC 29.3 g/dL (32.0-36.0); MCV 62.7 fL (80-100); MPV 7.5 fL (7.6-11.3); Monocytes % 5.6 % (3.3-12.3); Platelets 477 thou/uL (152-406); RBC Red Blood Cell Count 3.48 M/uL (4.33-5.43); Red Cell Distribution Width 19.7 % (12.1-15.2)
--- NOTE | 2024-04-22 10:20 | PN ---
Date of Progress Note: 04/22/2024 Subjective: Patient is awake, alert. No new complaint. Complaints of incisional pain. Objective: Vital Signs: Stable. Afebrile. Cultures reviewed. The bacteria are sensitive to oral antibiotics including Augmentin. Dressing is clean, dry, intact. Laboratory Data: White count is down to 12,000. Assessment: Status post I and D of abdominal wall and left perirectal abscess in a patient with comp licated hidradenitis. Recommendations: Okay to discharge with wound care and antibiotics per the hospitalist and [facility], and patient will follow up with the bundle breaker as an outpatient as well . DESMOND/JONES Voice ID: [id number] Report ID: [id number]
[2024-04-22 13:21] VITALS: BP 125/59; TEMP 97.7
== END 2024-04-22 14:20 | disposition home or self-care (01) | DRG 357 ==
LOC: ER 09:05 → ERHOLD 12:03 → 4TH 14:03
PROVIDERS: ADMIT Hospitalist; ATTEND Hospitalist
PROC: 0JBB0ZZ Excision of Perineum Subcutaneous Tissue and Fascia, Open Approach (ICD-10-PCS; 2024-04-20)
PROC: 30233N1 Transfusion of Nonautologous Red Blood Cells into Peripheral Vein, Percutaneous Approach (ICD-10-PCS; 2024-04-20)
PROC: 0JB80ZZ Excision of Abdomen Subcutaneous Tissue and Fascia, Open Approach (ICD-10-PCS; principal; 2024-04-20 09:00)
DX: K61.1 Rectal abscess (principal); L02.211 Cutaneous abscess of abdominal wall; L02.416 Cutaneous abscess of left lower limb; D64.9 Anemia, unspecified; E87.6 Hypokalemia; L73.2 Hidradenitis suppurativa; E66.9 Obesity, unspecified; D72.829 Elevated white blood cell count, unspecified; E83.42 Hypomagnesemia; R00.0 Tachycardia, unspecified; Z88.8 Allergy status to other drugs, medicaments and biological substances; Z68.37 Body mass index [BMI] 37.0-37.9, adult; Z87.891 Personal history of nicotine dependence
CPT/HCPCS: 36415; 71045; 74177; 80048; 80053; 80076; 80202; 83605; 83735; 83880; 84484; 85025; 85610; 86850; 86900; 86901; 86920; 87040; 87070; 87075; 87076; 87077; 87185; 87186; 87205; 88304; 93005; 96372; 99285; A4216; J1100; J1170; J2001; J2250; J2270; J2371; J2405; J2543; J2704; J3010; J3475; J3480; J7030; J7040; Q9967

== ENCOUNTER 2025-07-17 18:06 | Emergency (ER) | payer OTHER ==
[2025-07-17] MEDS ORDERED: CEPHALEXIN 250 MG CAP ONE (18:22)
[2025-07-17] MEDS ORDERED: IBUPROFEN 400 MG TAB ONE (18:22)
[2025-07-17] MEDS ORDERED: SMZ./TMP. 800/160 MG TABLET ONE (18:22)
[2025-07-17] MEDS ORDERED: HYDROCODONE/APAP 10/325 TAB ONE (18:55)
--- NOTE | 2025-07-17 18:56 | ER ---
Nurse's Notes [facility] Name: Man Davis Age: 29 yrs Sex: Male : 1995 Arrival Date: 07/17/2025 Time: 18:06 Bed 10 Private MD: Diagnosis: Hidradenitis suppurativa Presentation: 07/17 18:43 Chief complaint: Patient states: I have an abscess below my belly button that started a jb4 month ago and has been swollen for the past week. Coronavirus screen: At this time, the client does not indicate any symptoms associated with coronavirus-19. Ebola Screen: No symptoms or risks identified at this time. Initial Sepsis Screen: Does the patient meet any 2 criteria? HR > 90 bpm. No. Patient's initial sepsis screen is negative. Does the patient have a suspected source of infection? No. Patient's initial sepsis screen is negative. Risk Assessment: Do you want to hurt yourself or someone else? Patient reports no desire to harm self or others. Onset of symptoms was June 17, 2025. Transition of care: patient was not received from another setting of care. 18:43 Method Of Arrival: Ambulatory jb4 18:43 Acuity: SUMEET 4 jb4 Historical: - Allergies: 18:45 Chlorhexidine Gluconate; jb4 18:45 PENICILLINS; jb4 - PMHx: 18:45 Anemia; diabetes mellitus; Hidradenitis Suppurativa; jb4 Screenin:45 [facility] ED Fall Risk Assessment (Adult) History of falling in the last 3 months, jb4 including since admission No falls in past 3 months (0 pts) Confusion or Disorientation No (0 pts) Intoxicated or Sedated No (0 pts) Impaired Gait No (0 pts) Mobility Assist Device Used No (0 pt) Altered Elimination No (0 pt) Score/Fall Risk Level 0 - 2 = Low Risk Oriented to surroundings, Maintained a safe environment. Abuse screen: Denies threats or abuse. Nutritional screening: No deficits noted. Tuberculosis screening: No symptoms or risk factors identified. Assessment: 18:45 General: Appears in no apparent distress. comfortable, Behavior is calm, cooperative, jb4 appropriate for age. Pain: Complains of pain in suprapubic area Pain does not radiate. Pain currently is 8 out of 10 on a pain scale. Neuro: Level of Consciousness is awake, alert, obeys commands, Oriented to person, place, time, situation. Cardiovascular: Patient's skin is warm and dry. Respiratory: Airway is patent Respiratory effort is even, unlabored, Respiratory pattern is regular, symmetrical. Derm: Skin is intact, Skin is dry, Skin is normal, Skin temperature is warm Abscess located on suprapubic area is golf ball sized, has no drainage, is raised. Musculoskeletal: Circulation, motion, and sensation intact. Range of motion: intact in all extremities. 19:19 Reassessment: Patient appears in no apparent distress at this time. Patient and/or jb4 family updated on plan of care and expected duration. Pain level reassessed. Patient is alert, oriented x 3, equal unlabored respirations, skin warm/dry/pink. Vital Signs: 18:43 BP 152 / 88; Pulse 91; Resp 16; Temp 99.3(O); Pulse Ox 100% ; Weight 136.08 kg (R); jb4 Height 6 ft. 3 in. (R); 18:43 Body Mass Index 37.50 (136.08 kg, 190.5 cm) jb4 ED Course: 18:08 Patient arrived in ED. im 18:09 Anna [facility]C [facility]. kb 18:10 Kar Ziegler MD is Attending Physician. kb 18:45 Triage completed. jb4 18:45 Arm band placed on right wrist. jb4 18:45 Patient has correct armband on for positive identification. Bed in low position. Call jb4 light in reach. Provided Education on: plan of care. 18:45 No provider procedures requiring assistance completed. Patient did not have IV access jb4 during this emergency room visit. Administered Medications: 18:43 Drug: Ibuprofen PO 800 mg PO once Route: PO; jb4 19:19 Follow up: Response: No adverse reaction; Marked relief of symptoms jb4 18:43 Drug: Cephalexin PO 500 mg PO once Route: PO; jb4 19:18 Follow up: Response: No adverse reaction jb4 18:43 Drug: Trimethoprim-Sulfamethoxazole PO (160 mg-800 mg (DS) 1 tablet PO once Route: PO; jb4 19:18 Follow up: Response: No adverse reaction jb4 19:14 Drug: [place] PO 10 mg-325 mg 1 tabs PO once Route: PO; jb4 19:19 Follow up: Response: No adverse reaction jb4 Medication: 18:45 VIS not applicable for this client. jb4 Outcome: 18:56 Discharge ordered by . kathy 19:19 Discharged to home ambulatory, jb4 19:19 Condition: stable 19:19 Discharge instructions given to patient, Instructed on discharge instructions, follow up and referral plans. medication usage, Demonstrated understanding of instructions, follow-up care, medications, Prescriptions given X 2, 19:20 Patient left the ED. jb4 Signatures: Anna Maria, CASINO FLOORPERSON-C CASINO FLOORPERSON-Will Mcclain, RN RN jb4 Grecia Cates
--- NOTE | 2025-07-17 18:56 | EDPHYS ---
Physician Documentation [facility] Name: Man Davis Age: 29 yrs Sex: Male : 1995 Arrival Date: 07/17/2025 Time: 18:06 Bed 10 Private MD: ED Physician Kar Ziegler HPI: 07/17 18:53 This 29 yrs old Black Male presents to ER via Ambulatory with complaints of Skin kb Problem. 18:53 Pt is a 29 year old male who presents for abscess below belly button that started one kb month ago. States he hit it on something at work about a week ago and it has been painful since then. Denies fever. Reports history of hidradenitis suppurativa and sees Dr Alatorre. Historical: - Allergies: 18:45 Chlorhexidine Gluconate; jb4 18:45 PENICILLINS; jb4 - PMHx: 18:45 Anemia; diabetes mellitus; Hidradenitis Suppurativa; jb4 ROS: 18:52 Constitutional: As per HPI kb Exam: 18:52 Constitutional: This is a well developed, well nourished patient who is awake, alert, kb and in no acute distress. Head/Face: Normocephalic, atraumatic. ENT: Moist Mucous membranes Respiratory: Respirations even and unlabored. No increased work of breathing. Talking in full sentences MS/ Extremity: Pulses equal, no cyanosis. Neurovascular intact. Full, normal range of motion. Neuro: Awake and alert, GCS 15, oriented to person, place, time, and situation. 18:52 Skin: abscess, that is moderate sized, of the suprapubic area, without erythema, induration, Vital Signs: 18:43 BP 152 / 88; Pulse 91; Resp 16; Temp 99.3(O); Pulse Ox 100% ; Weight 136.08 kg (R); jb4 Height 6 ft. 3 in. (R); 18:43 Body Mass Index 37.50 (136.08 kg, 190.5 cm) jb4 MDM: 18:10 Medical Screening Exam initiated kb 18:52 Differential diagnosis: cellulitis, abscess, insect bite. Data reviewed: vital signs, kb nurses notes. Counseling: I had a detailed discussion with the patient and/or guardian regarding the historical points, exam findings, and any diagnostic results supporting the discharge/admit diagnosis, the need for outpatient follow up, a general surgeon, to return to the emergency department if symptoms worsen or persist or if there are any questions or concerns that arise at home. ED course: Pt will call Dr Alatorre's office tomorrow to make appt for follow up. . Administered Medications: 18:43 Drug: Ibuprofen PO 800 mg PO once Route: PO; jb4 19:19 Follow up: Response: No adverse reaction; Marked relief of symptoms jb4 18:43 Drug: Cephalexin PO 500 mg PO once Route: PO; jb4 19:18 Follow up: Response: No adverse reaction jb4 18:43 Drug: Trimethoprim-Sulfamethoxazole PO (160 mg-800 mg (DS) 1 tablet PO once Route: PO; jb4 19:18 Follow up: Response: No adverse reaction jb4 19:14 Drug: Ennice PO 10 mg-325 mg 1 tabs PO once Route: PO; jb4 19:19 Follow up: Response: No adverse reaction jb4 Disposition Summary: 07/17/25 18:56 Discharge Ordered Notes: Location: Home kb Condition: Stable kb Diagnosis - Hidradenitis suppurativa kb Followup: kb - With: Emergency Department - When: As needed - Reason: Worsening of condition Followup: kb - With: Private Physician - When: 2 - 3 days - Reason: Recheck today's complaints, Continuance of care, Re-evaluation by your physician Discharge Instructions: - Discharge Summary Sheet kb - Hidradenitis Suppurativa kb Forms: - Medication Reconciliation Form kb - Antibiotic Education kb - Prescription Opioid Use kb - Patient Portal Instructions kb - Leadership Thank You Letter kb Prescriptions: - Cephalexin 500 mg Oral Capsule - take 1 capsule ORAL route every 8 hours for 10 days; 30 capsule; Refills: 0, kb Product Selection Permitted - Bactrim DS 800-160 mg Oral Tablet - take 1 tablet ORAL route every 12 hours for 10 days; 20 tablet; Refills: 0, kb Product Selection Permitted Signatures: Anna Maria FNP-C FNP-Will Mcclain, RN RN jb4 Corrections: (The following items were deleted from the chart) 18:55 18:53 Pt is a 29 year old male who presents for abscess below belly button that started kb one month ago. States he hit it on something at work about a week ago and it has been painful since then. Denies fever. . kb
[2025-07-18 01:51] VITALS: BP 152/88; TEMP 99.3; O2SAT 100
== END 2025-07-17 19:20 | disposition home or self-care (01) ==
LOC: ER 18:06
DX: L73.2 Hidradenitis suppurativa (principal)
CPT/HCPCS: 99283